=== PATIENT | male | born 1945 | race Caucasian/White ===

== ENCOUNTER 2019-10-05 14:22 | Outpatient (CLI) | payer OTHER, SELFPAY ==
[2019-10-10 21:36] LABS: PSA, Free 0.04 ng/mL; PSA, Total 0.1 ng/mL (<=4.0)
== END 2019-10-05 14:23 | disposition home or self-care (01) ==
LOC: ANHLAB 14:24
PROVIDERS: PCP Internal Medicine; Visit Provider Radiology Radiation Oncology
DX: C61 Malignant neoplasm of prostate (principal)
CPT/HCPCS: 36415; 84153; 84154

== ENCOUNTER 2020-10-05 14:31 | Inpatient (IN) | payer OTHER, SELFPAY ==
[2020-10-05] VITALS (9 sets, daily range): BP systolic 137–154; BP diastolic 57–78; PULSE 63–74; RESP 14–22; TEMP 36.6–36.7; O2SAT 95–99; BMI 26.4
--- NOTE | ~2020-10-05 | XR_ITS ---
EXAMINATION: XR chest 1V portable INDICATION: Chest pain TECHNIQUE: Portable AP chest at 1555 hours COMPARISON: 04/09/2016 FINDINGS: There is ill-defined opacity in the left midlung zone. There is a questionable fracture of the left sixth rib. No pleural effusion or pneumothorax is identified. The cardiomediastinal silhouet te is normal. IMPRESSION: 1. Ill-defined opacity of the left midlung zone which could be infectious/inflammatory or possibly co ntusion. 2. Likely left sixth rib fracture. Reviewed, dictated and finalized at location A. IMPRESSION: 1. Ill-defined opacity of the left midlung zone which could be infectious/infla mmatory or possibly contusion. 2. Likely left sixth rib fracture.
--- NOTE | ~2020-10-05 | XR_ITS ---
EXAMINATION: XR femur LT min 2V INDICATION: Left hip pain, initial encounter TECHNIQUE: Two views of the left femur are obtained on four radiographs. COMPARISON: None available FINDINGS: There is an acute, traumatic, closed, oblique fracture in the proximal femoral shaft. There is varus angulation at the fracture site. The distal fracture fragment is dorsally displaced approxi mately 2.5 cm. Alignment at the hip and knee is normal. There is mild hip osteoarthritis. There are c hanges of total knee arthroplasty. Calcified atherosclerosis is noted. IMPRESSION: 1. Acute displaced fracture of the proximal femoral shaft. Reviewed, dictated and finalized at location A.
--- NOTE | ~2020-10-05 | XR_ITS ---
EXAMINATION: XR surgery orthopedic DATE: 10/06/2020 11:27 INDICATION: Left hip intertrochanteric nailing TECHNIQUE: Fluoroscopic spot images of the left hip and femur were obtained during procedure performed by Dr. Peter stein. Radiologist was not present for the imaging or procedure. The amount of fluoroscopy time used during this procedure was 4.1 minutes. COMPARISON: 10/05/2020 FINDINGS: Interval open reduction and internal fixation of the previously noted subtrochanteric fracture of the proximal left femur with an antegrade intramedullary christy, interlocking distal and femoral neck screw s and subtrochanteric cerclage wire. Alignment appears near-anatomic. No other fractures identified. Mild to moderate left hip osteoarthritis with axial predominant nonuniform joint space narrowing and small marginal osteophytes about the rim of the acetabulum. Expected small amount of soft tissue gas the operative bed. IMPRESSION: 1. Near-anatomic alignment post open reduction internal fixation of a subtrochanteric fracture of the proximal left femoral diaphysis. Reviewed, dictated and finalized at location A. IMPRESSION: 1. Near-anatomic alignment post open reduction internal fixation of a subtrocha nteric fracture of the proximal left femoral diaphysis.
--- NOTE | ~2020-10-05 | XR_ITS ---
EXAMINATION: XR hip LT 2V w AP pelvis INDICATION: Left hip pain, initial encounter TECHNIQUE: AP view of the pelvis and two views of the left hip are obtained. COMPARISON: None available FINDINGS: There is an acute, traumatic, closed, oblique fracture in the proximal femoral shaft. There is varus angulation at the fracture site. The distal fracture fragment is dorsally displaced approxi mately 2.5 cm. Alignment at the hip is normal. There is mild hip osteoarthritis. There is severe lumb ar spondylosis. Calcified atherosclerosis is noted. IMPRESSION: 1. Acute fracture of the proximal left femoral shaft. Reviewed, dictated and finalized at location A.
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
--- NOTE | 2020-10-05 15:44 | ECG_ITS ---
Measurements Intervals [place] Rate: 67 P: 55 UT: 147 QRS: -10 QRSD: 97 T: 13 QT: 410 QTc: 435 Interpretive Statements SINUS RHYTHM BASELINE ARTIFACT- I, II, III, AVR, AVF, V1-V6 NORMAL ECG Electronically Signed On 10-05-2020 20:56:06 CDT by Kristopher King D.O.
[2020-10-05] MEDS: SODIUM CHLORIDE 0.9% IV 1,000 ML 100 ML IV CONT (16:09)
[2020-10-05 16:15] LABS: Basophils Percent Auto 0.2 % (0.2-1.2); Eosinophils Absolute Auto 0.1 K/mm3 (0-0.3); Eosinophils Percent Auto 1.7 % (0-4.4); Hematocrit 41.4 % (42.0-52.0); Hemoglobin 13.7 g/dL (14.0-18.0); Immature Granulocyte Absolute 0.04 K/mm3 (0.00-0.031); Immature Granulocyte Percent A 0.5 % (0-0.5); Lymphocytes Absolute Auto 0.83 K/mm3 (0.9-3.2); Lymphocytes Percent Auto 10.3 % (18.3-44.2); Mean Corpuscular HGB Conc 33.1 g/dl (32-36); Mean Corpuscular Hemoglobin 31.1 pg (26-34); Mean Corpuscular Volume 94.1 fl (80-100); Mean Platelet Volume 9.3 fl (7.4-10.4); Monocytes Absolute Auto 0.4 K/mm3 (0.1-0.6); Monocytes Percent Auto 5.2 % (2.6-8.5); Neutrophils Absolute Auto 6.6 K/mm3 (1.3-6.7); Neutrophils Percent Auto 82.1 % (45.5-73.1); Platelet Count Result 150 k/mm3 (150-375)
[2020-10-05 16:24] LABS: Anion Gap 7 mmol/L (8-16); Blood Urea Nitrogen 20 mg/dL (9-20); Calcium 9.2 mg/dL (8.4-10.2); Carbon Dioxide 26 mmol/L (22-30); Chloride 107 mmol/L (98-107); Estimated CRCL calculation 61 ml/min; Estimated Glomerular Filt Rate > 60; Glucose 153 mg/dL (75-110); Potassium 4.1 mmol/L (3.4-5.0); Sodium 140 mmol/L (137-145)
[2020-10-05 16:26] LABS: INR 0.9
[2020-10-05 16:27] LABS: Partial Thromboplastin Time 24.8 SECONDS (22.3-36.8)
[2020-10-05] MEDS: MORPHINE SULFATE (*CRX) 4 MG/ML INJ IV PUSH (16:50)
--- NOTE | 2020-10-05 18:26 | ADMGEN ---
This patient, Roney Mason, was admitted to Medical Room 254-01. Patient/family oriented to hospital policies and general routines including ID bracelet, bed and alarms, visiting hours, pain management, procedures, bathroom and other care routines, personal items, smoking policy, room service/diet, and visiting hours. Information on how to activate the Rapid Response Team has been discussed. Patient/Family are encouraged to report perceived risks to care and to ask questions if they do not understand what they are told or what they should do.
[2020-10-05 18:40] LABS: Glucose Point of Care 129 mg/dl (65-105)
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
[2020-10-05 20:38] LABS: Glucose Point of Care 192 mg/dl (65-105)
[2020-10-05] MEDS: HYDROcodone/acetaminophen (*CRX) 5-325 MG TABLET 1 TAB PO (20:38)
[2020-10-06] VITALS (15 sets, daily range): BP systolic 100–142; BP diastolic 41–66; PULSE 71–92; RESP 10–20; TEMP 36.1–37.6; O2SAT 93–100
[2020-10-06] MEDS: HYDROcodone/acetaminophen (*CRX) 5-325 MG TABLET 1 TAB PO ×2 (00:44→04:43)
[2020-10-06 05:17] LABS: Hematocrit 37.3 % (42.0-52.0); Hemoglobin 12.7 g/dL (14.0-18.0); Mean Corpuscular Hemoglobin 31.1 pg (26-34); Mean Corpuscular Volume 91.4 fl (80-100); Mean Platelet Volume 9.6 fl (7.4-10.4); Platelet Count Result 146 k/mm3 (150-375); Red Blood Count 4.08 M/mm3 (4.6-6.20); Red Cell Distribution Width 12.6 % (11.5-14.5); White Blood Count 6.3 K/mm3 (4.5-10.0)
[2020-10-06 06:20] LABS: Vitamin D 25 Hydroxy 27.6 ng/mL
[2020-10-06] MEDS: LACTATED RINGERS 1,000 ML 30 ML IV CONT ×2 (07:00→12:10)
--- NOTE | 2020-10-06 07:01 | PC.NURSE ---
Pt transfered to surgery at 0635 by Johanny, personal belongings including glasses, hearing aid, and wedding ring in room closet inside [employer] glasses case
--- NOTE | 2020-10-06 07:01 | WPDANESEPPF ---
Anes - Initial Pre Proc Eval Procedure: Operation Date: 10/06/20 07:30 Proposed Procedures p Left Intertrochanteric Nail - Tyson Fu MD Date/Time: 10/06/20 07:01 Surgeon: Anup Mgaana MD Pre Op Diagnosis: left proximal femur fracture Patient Data Age: 75 Gender: M Height: 1.75 m Weight: 81.1 kg Last Vital Signs Temp 36.6 C 10/05/20 19:57 Pulse 74 10/05/20 19:57 Resp 16 10/05/20 19:57 BP 139/57 L 10/05/20 19:57 Pulse Ox 98 10/05/20 19:57 Allergies Allergy/AdvReac Type Severity Reaction Status Date / Time Sulfa (Sulfonamide Allergy Unknown Rash Verified 10/05/20 18:28 Antibiotics) Penicillins AdvReac Unknown Swelling Verified 10/05/20 18:28 Home Medications Medication Instructions Recorded Confirmed Type losartan 50 mg tablet 50 mg PO DAILY #90 tablet 10/26/19 10/05/20 Rx dapagliflozin [Farxiga] 10 mg PO DAILY 10/05/20 10/05/20 History escitalopram oxalate 10 mg PO DAILY 10/05/20 10/05/20 History glimepiride 2 mg PO DAILY 10/05/20 10/05/20 History pravastatin 40 mg PO DAILY 10/05/20 10/05/20 History sitagliptin-metformin [Janumet] 1 tablet PO DAILY 10/05/20 10/05/20 History Laboratory Tests 10/05/20 10/05/20 10/05/20 16:09 16:09 16:09 WBC 8.0 K/mm3 K/mm3 (4.5-10.0) RBC 4.40 M/mm3 L M/mm3 (4.6-6.20) Hgb 13.7 g/dL L g/dL (14.0-18.0) Hct 41.4 % L % (42.0-52.0) MCV 94.1 fl fl (80-100) MCH 31.1 pg pg (26-34) MCHC 33.1 g/dl g/dl (32-36) RDW 13.0 % % (11.5-14.5) Plt Count 150 k/mm3 k/mm3 (150-375) MPV 9.3 fl fl (7.4-10.4) Immature Gran % (Auto) 0.5 % % (0-0.5) Neut % (Auto) 82.1 % H % (45.5-73.1) Lymph % (Auto) 10.3 % L % (18.3-44.2) Russell % (Auto) 5.2 % % (2.6-8.5) Eos % (Auto) 1.7 % % (0-4.4) Baso % (Auto) 0.2 % % (0.2-1.2) Lymph # (Auto) 0.83 K/mm3 L K/mm3 (0.9-3.2) Russell # (Auto) 0.4 K/mm3 K/mm3 (0.1-0.6) Eos # (Auto) 0.1 K/mm3 K/mm3 (0-0.3) Baso # (Auto) 0.0 K/mm3 K/mm3 (0.0-0.1) Abs Immat Gran (auto) 0.04 K/mm3 H K/mm3 (0.00-0.031) Absolute Neuts (auto) 6.6 K/mm3 K/mm3 (1.3-6.7) Absolute Nucleated RBC 0.0 K/mm3 K/mm3 (0.0-0.012) Nucleated RBC % 0.0 % % (0.0-0.2) PT 13.0 Seconds Seconds (11.1-14.7) INR 0.9 APTT 24.8 SECONDS SECONDS (22.3-36.8) Sodium 140 mmol/L mmol/L (137-145) Potassium 4.1 mmol/L mmol/L (3.4-5.0) Chloride 107 mmol/L mmol/L (98-107) Carbon Dioxide 26 mmol/L mmol/L (22-30) Anion Gap 7 mmol/L L mmol/L (8-16) BUN 20 mg/dL mg/dL (9-20) Creatinine 0.90 mg/dL mg/dL (0.7-1.3) Estim Creat Clear Calc 61 ml/min ml/min Estimated GFR > 60 (59 - ) Glucose 153 mg/dL H mg/dL (75-110) POC Capillary Glucose Calcium 9.2 mg/dL mg/dL (8.4-10.2) Free PSA % Free PSA Total PSA Vitamin D 25-Hydroxy Blood Type Antibody Screen 10/05/20 10/05/20 10/05/20 16:09 18:36 20:35 WBC RBC Hgb Hct MCV MCH MCHC RDW Plt Count MPV Immature Gran % (Auto) Neut % (Auto) Lymph % (Auto) Russell % (Auto) Eos % (Auto) Baso % (Auto) Lymph # (Auto) Russell # (Auto) Eos # (Auto) Baso # (Auto) Abs Immat Gran (auto) Absolute Neuts (auto) Absolute Nucleated RBC Nucleated RBC % PT INR APTT Sodium Potassium Chloride
[2020-10-06] MEDS: TRANEXAMIC ACID 1,000MG/ISO100 1,000 MG/100 ML BAG 200 MG IVPB (07:03)
[2020-10-06 07:22] LABS: Glucose Point of Care 241 mg/dl (65-105)
--- NOTE | 2020-10-06 07:28 | WPDHPUPDATE1 ---
History and Physical Update Update Date/Time: 10/06/20 07:28 History and Physical has been reviewed, including an updated exam of the patient. There are NO changes in the patient's condition. Risks, benefits, and alternatives have been discussed and questions answered. Patient agrees to proceed with procedure.
[2020-10-06] MEDS: INSULIN HUMAN REGULAR (*BKC) 100 UNITS/ML IV PUSH ×2 (07:30→12:25)
[2020-10-06] MEDS: AZTREONAM 2 GM in DEXTROSE 5% 100 ML 200 ML IVPB (08:00)
[2020-10-06] MEDS: VANCOMYCIN HCL 1,000 MG VIAL 1000 MG XX (08:56)
[2020-10-06] MEDS: CLINDAMYCIN 900 MG/D5W 50 ML 900 MG/50 ML PIGGYBACK 50 MG IVPB (11:36)
--- NOTE | 2020-10-06 12:00 | PM.PROC ---
Procedure Note - Detailed Date of procedure: 10/06/20 Pre-op diagnosis: left proximal femur fracture Left proximal shaft fracture long oblique with subtrochanteric extension Post-op diagnosis: same Procedure performed: Open reduction internal fixation left proximal shaft long oblique fracture with [employer] Gamma trochanteric nail device. Description of procedure: Patient was brought to the operating room and general anesthesia was administered. The had allergy to penicillin that was severe in the past. He received 2 g of a strand am weight based vancomycin and 1 g of tranexamic acid preoperatively. The thigh was shaved in carefully scrubbed with chlorhexidine cloth boot was applied on the foot with extra padding for longitudinal traction the right hip flexed and abducted out of the way a calf carefully padded. General anesthesia was was used so we could use muscle paralysis for relaxation. After applying traction to the leg fluoroscopy showed that the distal fragment was 100% posteriorly translated relative to the proximal fragment. The left thigh was prepped draped usual fashion. A 4 in longitudinal incision was made over the posterolateral femur at the level of the long oblique fracture. The fascia viki was incised longitudinally. We incised the vastus lateralis fascia about a cm from the posterior aspect of the muscle and elevated this off the lateral and anterior cortex of the distal fragment. The fracture was primarily in the sagittal plane exiting the lateral cortex distal to the greater trochanter with some comminution in that region and exiting the medial cortex about 5 in distal to the lesser trochanter. A Lopez retractor was placed anteriorly and we inspected the fracture looking for signs of tumor and I did not see any period the visible external surface of the bone and the endosteal surfaces of the bone appeared to be normal. There was no soft tissue in the canal. He does have a history of prostate cancer. Fracture hematoma was sent half. The femur was elevated pressure under the thigh and we passed the [place] cable Passer of appropriate sized over the front again the bone and penetrated this through the gluteus romi tendon insertion and with the Z retractor placed posterior laterally we exposed the tip of the cable Passer and fed the cable into this bring it out the front. We then applied the crimp and the tensioner and manipulated the femur. Little bit of external rotation was needed on the leg and anterior translation of the distal shaft was crucial. Gradually we improved the alignment to near anatomic and at this point we took the over distraction off and the fracture settled into what appeared to be perfect anatomic reduction. We left the [place] tensioner on the bone at 75 lb. We then made a 2 in incision proximal to greater trochanter guide pin drilled into the proper position of the greater trochanter and down the canal. The canal was reamed to 13 mm which just started to get chatter. The intertrochanteric region of the femur was reamed to the 16 mm Reamer. We asked for the 11 mm by 360 mm nail but unfortunately that this stage we learned that we only had 9 mm nails in the hospital which I did not think it was appropriate for a gentleman the size. We had a few [employer] gamma nails but none that would be appropriate in length for this gentleman. Also we did not have the appropriate length hip screws to go with it. We called the [employer] rep when and they advised us that they could be here with the implants in 30 minutes and a brown to the hospital while we made ready for the implant arrival when they arrived we inserted the 360 mm gamma nail for the left femur 36 cm in length which was the appropriate length. We inserted a guide pin up into the femur. Because of his particular anteversion and anatomy a guide pin was a little bit posterior in the femoral head but acceptable for a non intertrochanteric hip fracture and we reamed this and pl
[2020-10-06 12:41] LABS: Glucose Point of Care 266 mg/dl (65-105)
--- NOTE | 2020-10-06 12:43 | SUR.PHASEI ---
[id number] sbar faxed floor notified
[2020-10-06] MEDS: AZTREONAM 1 GM in DEXTROSE 5% IN WATER 50 ML 100 ML IVPB ×2 (13:43→21:48)
[2020-10-06] MEDS: PRAVASTATIN SODIUM 20 MG TABLET 40 MG PO (13:44)
[2020-10-06] MEDS: ESCITALOPRAM OXALATE 10 MG TABLET PO (13:44)
[2020-10-06] MEDS: ACETAMINOPHEN 500 MG TABLET 1000 MG PO ×2 (13:44→17:59)
[2020-10-06] MEDS: oxyCODONE HCL (*CRX) 5 MG TAB IR PO ×3 (13:44→21:48)
[2020-10-06] MEDS: LOSARTAN POTASSIUM 50 MG TABLET PO (13:44)
--- NOTE | 2020-10-06 14:00 | PC.NURSE ---
Patient returned from Surgery. Report received from AYLIN Winston.
[2020-10-06] MEDS: ONDANSETRON INJ 4 MG/2 ML VIAL IV PUSH (14:32)
[2020-10-06] MEDS: KCL 20 MEQ/D5/0.45% SOD CHL 1,000 ML 80 ML IV CONT (14:33)
--- NOTE | 2020-10-06 14:38 | PM.IMPN ---
Progress Note: A&P Assessment and Plan (1) Closed fracture of proximal end of femur: Code(s): S72.009A - Fracture of unspecified part of neck of unspecified femur, initial encounter for closed fracture Status: Acute Assessment and Plan: Status post left femur repair Care per ortho infection control: Aztreonam 1gm q8hr, vancomycin 1000 q12hr, Doxycycline 100mg PO Q12hr Pain control:Tylenol 1000mg PO Q6hr, oxycodone 5mg PO Q4hr, Morphine 2mg IV Q3/4hr PRN, Roxicodone 5mg Q4hr PRN Nausea:Zofran 4mg Q4hr Bowel regimen: MOM, Mylanta, Senokot SUPPORTIVE CARE PAIN MANAGEMENT ORTHO CONSULTED PT/OT VTE Apixaban 2.5 PO Q12hr (2) Type 2 diabetes mellitus without complication, with no history of insulin use: Code(s): E11.9 - Type 2 diabetes mellitus without complications Status: Acute Assessment and Plan: ACCU-CHEKS AC AND HS Continue home farxiga 10 mg PO Daily, Glimepiride 2mg PO daily, and Janumet 1 tab Daily Adjust mediations as needed (3) Essential (primary) hypertension: Code(s): I10 - Essential (primary) hypertension Status: Acute Assessment and Plan: 134/56 currently Trend blood pressure Continue home losartan 50 mg p.o. daily Adjust medications as needed (4) Status post total right knee replacement: Code(s): Z96.651 - Presence of right artificial knee joint Status: Acute Assessment and Plan: STABLE (5) Anxiety and depression: Code(s): F41.9 - Anxiety disorder, unspecified; F32.9 - Major depressive disorder, single episode, unspecified Status: Acute Assessment and Plan: Continue home Lexapro 10 mg p.o. daily Subjective Date/time seen: 10/06/20 14:38 Patient is a 75-year-old male who has a past medical history of anxiety and depression hypertension type 2 diabetes who came to the ED last night after being drug by his lawnmower. Patient's foot got stuck and twisted and he has suffered a proximal shaft displacement fracture of the left femur. This morning patient had the fracture fix this morning by Dr. Fu. Upon examination of the patient, patient was sitting in the chair stating that he was tired and just want to take a nap. He stated they got him in the chair right after arriving to the room. Patient does not have any complaints of pain at this time he did say that he was slight bit nauseated and lightheaded. Patient denies chest pain shortness of breath, vomiting, weakness, fatigue, chills, sweats, headache, fatigue, and syncope. Review of Systems Review of Systems: All systems reviewed & are unremarkable except as noted in HPI and below Exam Const: General: cooperative, healthy appearing, comfortable, no acute distress, well developed, alert, awake, Physically active, lethargic and tired appearing; No in distress or anxious Nutritional Appearance: average body habitus and well nourished Orientation/consciousness: patient oriented x3 Limitations: physical limitations (From hip fracture repair) HENMT: Head: normal to inspection, No palpable skull fracture present, normocephalic and atraumatic Ears: hearing grossly normal bilaterally and external ears normal General nose exam: Normal external nose present, Normal nares present, Normal nasal mucous membranes and turbinates present, Normal septum present and No nasal discharge present Face and sinus: normal facial exam, sinuses nontender and face symmetric Mouth: Yes Normal oral and palatal mucosa present, Yes lip normal, Yes tongue normal and Yes Normal salivary glands and ducts present Teeth and gingiva: dentition normal and gingiva normal Throat: posterior oropharynx normal Eyes: General: appearance normal, both eyes and all related structures Periorbital: periorbital findings normal Eyelids: eyelids normal Conjunctivae: conjunctivae normal Pupils: Equal, round and reactive pupils present EOM: EOMs intac
[2020-10-06] MEDS: SENNA/DOCUSATE SODIUM TABLET 2 TAB PO (16:14)
[2020-10-06 17:41] LABS: Glucose Point of Care 286 mg/dl (65-105)
[2020-10-06] MEDS: INSULIN ASPART (*BKC) 100 UNITS/ML SUB-Q (17:57)
--- NOTE | 2020-10-06 18:11 | PHAR ---
PT'S HOME MED JARDIANCE 25 MG TAB VERIFIED BY PHARMACY
[2020-10-06] MEDS: FAMOTIDINE 20 MG TABLET PO (20:28)
[2020-10-06 21:11] LABS: Glucose Point of Care 268 mg/dl (65-105)
[2020-10-07] VITALS: BP 114/42; PULSE 70; RESP 14; TEMP 36.4; O2SAT 96
[2020-10-07] MEDS: oxyCODONE HCL (*CRX) 5 MG TAB IR PO ×3 (01:20→20:28)
[2020-10-07] MEDS: ACETAMINOPHEN 500 MG TABLET 1000 MG PO ×5 (01:20→23:26)
[2020-10-07 04:00] VITALS: BP 102/39; PULSE 75; RESP 12; TEMP 36.4; O2SAT 94
[2020-10-07] MEDS: KCL 20 MEQ/D5/0.45% SOD CHL 1,000 ML 80 ML IV CONT ×2 (04:00→15:36)
[2020-10-07 05:17] LABS: Basophils Percent Auto 0.2 % (0.2-1.2); Eosinophils Percent Auto 0.5 % (0-4.4); Hematocrit 27.5 % (42.0-52.0); Immature Granulocyte Absolute 0.01 K/mm3 (0.00-0.031); Immature Granulocyte Percent A 0.2 % (0-0.5); Lymphocytes Percent Auto 15.4 % (18.3-44.2); Mean Corpuscular HGB Conc 32.7 g/dl (32-36); Mean Corpuscular Hemoglobin 31.3 pg (26-34); Mean Corpuscular Volume 95.5 fl (80-100); Mean Platelet Volume 9.7 fl (7.4-10.4); Monocytes Absolute Auto 0.5 K/mm3 (0.1-0.6); Monocytes Percent Auto 7.8 % (2.6-8.5); Neutrophils Absolute Auto 4.5 K/mm3 (1.3-6.7); Neutrophils Percent Auto 75.9 % (45.5-73.1); Platelet Count Result 117 k/mm3 (150-375); Red Blood Count 2.88 M/mm3 (4.6-6.20); Red Cell Distribution Width 12.9 % (11.5-14.5); White Blood Count 5.9 K/mm3 (4.5-10.0)
[2020-10-07 05:24] LABS: Anion Gap 4 mmol/L (8-16); Blood Urea Nitrogen 17 mg/dL (9-20); Calcium 7.7 mg/dL (8.4-10.2); Carbon Dioxide 27 mmol/L (22-30); Chloride 105 mmol/L (98-107); Estimated CRCL calculation 56 ml/min; Estimated Glomerular Filt Rate > 60; Glucose 159 mg/dL (75-110); Potassium 4.3 mmol/L (3.4-5.0); Sodium 136 mmol/L (137-145)
[2020-10-07] MEDS: AZTREONAM 1 GM in DEXTROSE 5% IN WATER 50 ML 100 ML IVPB (05:39)
--- NOTE | 2020-10-07 06:34 | PM.PNORT ---
Progress Note: A&P Additional Plan Patient is postop day 1 following intramedullary christy fixation of subtroch proximal shaft left femur fracture. He has no pain centrally. He has intact sensation motor function left leg. He denies any numbness around the scrotum. He has been up to the chair but does feel little bit lightheaded. His blood pressure was a little bit low this morning and I will ask the hospitalist if it is acceptable to hold his losartan or advisable. His hemoglobin this morning is only 9.0 which is not critically low but does represent a acute blood loss anemia that might explain his lightheadedness feeling being up. We will see how he does today. The fact that he was basically at bed rest for 24 hours can contribute to the lightheadedness feeling. I will reduce his schedule Oxy code own to 2.5 mg q.4 hours. He still has the as needed available. Will institute ergo calciferol 27086 units weekly for 6 weeks because have his low vitamin D level. His PSA tests are still pending. Will order a CBC in the morning. Subjective Subjective Date/Time Seen: 10/07/20 06:34 Objective Data Vital Signs Vital Signs: Vital Signs - 24 hr 10/06/20 07:10 10/06/20 08:48 10/06/20 12:00 Temperature 37.6 C 36.3 C L Pulse Rate 73 77 Respiratory Rate 16 12 Blood Pressure 142/64 H 130/58 L Pulse Oximetry 95 95 100 10/06/20 12:15 10/06/20 12:30 10/06/20 12:45 Temperature Pulse Rate 73 74 71 Respiratory Rate 15 10 L 12 Blood Pressure 131/66 118/59 L 127/60 Pulse Oximetry 97 100 97 10/06/20 13:00 10/06/20 13:25 10/06/20 13:40 Temperature 36.1 C L 36.1 C L Pulse Rate 73 75 77 Respiratory Rate 12 18 18 Blood Pressure 134/56 L 128/53 L 126/53 L Pulse Oximetry 96 98 93 10/06/20 14:10 10/06/20 14:15 10/06/20 15:10 Temperature 36.4 C 36.4 C L Pulse Rate 79 80 Respiratory Rate 20 20 Blood Pressure 101/48 L 100/50 L 118/41 L Pulse Oximetry 97 98 10/06/20 18:00 10/06/20 19:47 10/06/20 20:34 Temperature 36.6 C 36.6 C Pulse Rate 92 92 83 Respiratory Rate 18 18 12 Blood Pressure 111/52 L 118/44 L Pulse Oximetry 97 97 94 10/07/20 00:00 10/07/20 04:00 Temperature 36.4 C 36.4 C Pulse Rate 70 75 Respiratory Rate 14 12 Blood Pressure 114/42 L 102/39 L Pulse Oximetry 96 94 Intake/Output Intake/Output: Intake & Output 10/04/20 10/05/20 10/06/20 10/07/20 23:59 23:59 23:59 23:59 Intake Total 1000 1989 1500 Output Total 600 1850 1800 Balance 400 140 -300 Meds/Results Medications: Active Medications Generic Name Dose Route Start Last Admin Trade Name Freq PRN Reason Stop Dose Admin Acetaminophen 1,000 mg 10/06/20 13:13 10/07/20 05:39 Acetaminophen 500 Mg Tablet PO 1,000 mg Q6HR DERRICK Administration Al Hydrox/Mg Hydrox/Simethicone 30 ml 10/06/20 13:13 Mag Hydrox/Al Hydrox/Simeth 30 Ml Udc PO Q6H PRN Indigestion Apixaban 2.5 mg 10/07/20 09:00 Apixaban 2.5 Mg Tablet PO 11/18/20 09:01 Q12HR DERRICK Dextrose 12.5 gm 10/06/20 17:33 Dextrose 50% 25 Gm/50 Ml Syringe IV PUSH PRN PRN Hypoglycemia Protocol Doxycycline Hyclate 100 mg 10/07/20 09:00 Doxycycline Hyclate 100 Mg Tablet PO Q12HR DERRICK Escitalopram Oxalate 10 mg 10/06/20 09:00 10/06/20 13:44 Escitalopram Oxalate 10 Mg Tablet PO 10 mg DAILY DERRICK Administration Famotidine 20 mg 10/06/20 21:00 10/06/20 20:28 Famotidine 20 Mg Tablet PO 20 mg Q12HR DERRICK Administration Glimepiride 2 mg 10/07/20 08:00 Glimepiride 2 Mg Tablet PO DAILY@0800 DERRICK Glucagon 1 mg 10/06/20 17:33 Glucagon For Inj 1 Mg Vial IM PRN PRN Hypoglycemia Protocol Glucose 15 gm 10/06/20 17:33 Glucose Oral Gel 15 Gm Of Glucse In 37.5 Gm Tube PO PRN PRN Hypoglycemia Protocol Hydroxyzine Pamoate 50 mg 10/06/20 13:13 Hydroxyzine Pamoate 25 Mg Capsule PO Q4H PRN Itching Aztreonam 1 gm/ Dextrose 50 mls @ 100 mls/hr 05
[2020-10-07 07:58] LABS: Glucose Point of Care 227 mg/dl (65-105)
[2020-10-07] MEDS: INSULIN ASPART (*BKC) 100 UNITS/ML SUB-Q (08:47)
[2020-10-07] MEDS: GLIMEPIRIDE 2 MG TABLET PO (08:48)
[2020-10-07] MEDS: DOXYCYCLINE HYCLATE 100 MG TABLET PO ×2 (08:49→22:03)
[2020-10-07] MEDS: metFORMIN HCL 500 MG TABLET 1000 MG PO (08:49)
[2020-10-07] MEDS: APIXABAN 2.5 MG TABLET PO ×2 (08:49→20:28)
[2020-10-07] MEDS: SENNA/DOCUSATE SODIUM TABLET 2 TAB PO ×2 (08:49→17:38)
[2020-10-07] MEDS: FAMOTIDINE 20 MG TABLET PO ×2 (08:50→20:28)
[2020-10-07] MEDS: ESCITALOPRAM OXALATE 10 MG TABLET PO (08:50)
[2020-10-07] MEDS: ERGOCALCIFEROL 50,000 UNIT CAPSULE 50000 UNITS PO (08:50)
[2020-10-07] MEDS: PRAVASTATIN SODIUM 20 MG TABLET 40 MG PO (08:51)
[2020-10-07] MEDS: TOLNAFTATE 1% POWDER 45 GM BTL 1 APPLIC TOPICAL (08:51)
[2020-10-07] MEDS: LOSARTAN POTASSIUM 50 MG TABLET PO (08:51)
[2020-10-07] MEDS: polyethylene glycoL 3350 17 GM POWD.PACK PO (08:51)
[2020-10-07 10:00] VITALS: BP 103/50; PULSE 85; RESP 16; TEMP 36.7; O2SAT 92
--- NOTE | 2020-10-07 11:01 | PM.IMPN ---
Progress Note: A&P Assessment and Plan (1) Closed fracture of proximal end of femur: Code(s): S72.009A - Fracture of unspecified part of neck of unspecified femur, initial encounter for closed fracture Status: Acute Assessment and Plan: Status post left femur repair Care per ortho infection control: Aztreonam 1gm q8hr, vancomycin 1000 q12hr, Doxycycline 100mg PO Q12hr Pain control:Tylenol 1000mg PO Q6hr, oxycodone 2.5mg PO Q4hr, Morphine 2mg IV Q3/4hr PRN, Roxicodone 5mg Q4hr PRN Nausea:Zofran 4mg Q4hr Bowel regimen: MOM, Mylanta, Senokot SUPPORTIVE CARE PAIN MANAGEMENT ORTHO CONSULTED PT/OT-up to chair with meals VTE Apixaban 2.5 PO Q12hr (2) Acute blood loss anemia: Code(s): D62 - Acute posthemorrhagic anemia Status: Acute Assessment and Plan: Hemoglobin is 9 today Probably related to the surgery Will start some iron 324mg PO daily Trend H/H Labs in the AM (3) Type 2 diabetes mellitus without complication, with no history of insulin use: Code(s): E11.9 - Type 2 diabetes mellitus without complications Status: Acute Assessment and Plan: Glucose is running more elevated at 227 per POC ACCU-CHEKS AC AND HS Continue home Sitagiptin 50mg PO, Glimepiride 2mg PO daily, Sliding scale trend glucose Labs in the AM Adjust mediations as needed (4) Essential (primary) hypertension: Code(s): I10 - Essential (primary) hypertension Status: Acute Assessment and Plan: 103/50 currently Trend blood pressure Continue home losartan 50 mg p.o. daily Might hold if needed Adjust medications as needed (5) Status post total right knee replacement: Code(s): Z96.651 - Presence of right artificial knee joint Status: Acute Assessment and Plan: STABLE (6) Anxiety and depression: Code(s): F41.9 - Anxiety disorder, unspecified; F32.9 - Major depressive disorder, single episode, unspecified Status: Acute Assessment and Plan: Continue home Lexapro 10 mg p.o. daily Time Spent With Patient Time with patient: Greater than 35 minutes Subjective Date/time seen: 10/07/20 11:01 Patient is a 75-year-old male who has a past medical history of anxiety and depression hypertension type 2 diabetes who came to the ED on 10/05/2020 after being drug by his lawnmower. Patient's foot got stuck and twisted and he has suffered a proximal shaft displacement fracture of the left femur. Patient had femur repair done yesterday 10/06/[address] Schumacher. Patient was lying in bed when I saw him this morning he said that his pain was under control and he did have any pain. Patient stated that he still a little bit lightheaded and dizzy at times which he stated was from fast movements. Patient denies chest pain, shortness of breath, vomiting, nausea, weakness, fatigue, chills, sweats, headache, numbness and tingling, falls, syncope, or abnormal urination. Patient stated that Dr. Schumacher did state that he was going to cut his pain medicine back. Patient has also experienced a lower than normal blood pressure current blood pressure is 103/50. However this patient did show a drop in hemoglobin to 9 this morning on labs. Review of Systems Review of Systems: All systems reviewed & are unremarkable except as noted in HPI and below Exam Const: General: cooperative, healthy appearing, comfortable, no acute distress, well developed, alert, awake, Physically active, lethargic and tired appearing; No in distress or anxious Nutritional Appearance: average body habitus and well nourished Orientation/consciousness: patient oriented x3 and lethargic Limitations: physical limitations (From hip fracture repair) HENMT: Head: normal to inspection, No palpable skull fracture present, normocephalic and atraumatic Ears: hearing grossly normal bilaterally and external ears normal General
--- NOTE | 2020-10-07 11:01 | P.PNIM_ITS ---
Progress Note: A&P Assessment and Plan (1) Closed fracture of proximal end of femur: Code(s): S72.009A - Fracture of unspecified part of neck of unspecified femur, initial encounter for closed fracture Status: Acute Assessment and Plan: * Status post left femur repair * Care per ortho * infection control: Aztreonam 1gm q8hr, vancomycin 1000 q12hr, Doxycycline 100mg PO Q12hr * Pain control:Tylenol 1000mg PO Q6hr, oxycodone 2.5mg PO Q4hr, Morphine 2mg IV Q3/4hr PRN, Roxicodone 5mg Q4hr PRN * Nausea:Zofran 4mg Q4hr * Bowel regimen: MOM, Mylanta, Senokot * SUPPORTIVE CARE * PAIN MANAGEMENT * ORTHO CONSULTED * PT/OT-up to chair with meals * VTE Apixaban 2.5 PO Q12hr (2) Acute blood loss anemia: Code(s): D62 - Acute posthemorrhagic anemia Status: Acute Assessment and Plan: * Hemoglobin is 9 today * Probably related to the surgery * Will start some iron 324mg PO daily * Trend H/H * Labs in the AM (3) Type 2 diabetes mellitus without complication, with no history of insulin use: Code(s): E11.9 - Type 2 diabetes mellitus without complications Status: Acute Assessment and Plan: * Glucose is running more elevated at 227 per POC * ACCU-CHEKS AC AND HS * Continue home Sitagiptin 50mg PO, Glimepiride 2mg PO daily, * Sliding scale * trend glucose * Labs in the AM * Adjust mediations as needed (4) Essential (primary) hypertension: Code(s): I10 - Essential (primary) hypertension Status: Acute Assessment and Plan: * 103/50 currently * Trend blood pressure * Continue home losartan 50 mg p.o. daily * Might hold if needed * Adjust medications as needed (5) Status post total right knee replacement: Code(s): Z96.651 - Presence of right artificial knee joint Status: Acute Assessment and Plan: * STABLE (6) Anxiety and depression: Code(s): F41.9 - Anxiety disorder, unspecified; F32.9 - Major depressive disorder, single episode, unspecified Status: Acute Assessment and Plan: * Continue home Lexapro 10 mg p.o. daily Time Spent With Patient Time with patient: Greater than 35 minutes Subjective Date/time seen: 10/07/20 11:01 Patient is a 75-year-old male who has a past medical history of anxiety and depression hypertension type 2 diabetes who came to the ED on 10/05/2020 after being drug by his lawnmower. Patient's foot got stuck and twisted and he has suffered a proximal shaft displacement fracture of the left femur. Patient had femur repair done yesterday 10/06/[address] Schumacher. Patient was lying in bed when I saw him this morning he said that his pain was under control and he did have any pain. Patient stated that he still a little bit lightheaded and dizzy at times which he stated was from fast movements. Patient denies chest pain, shortness of breath, vomiting, nausea, weakness, fatigue, chills, sweats, headache, numbness and tingling, falls, syncope, or abnormal urination. Patient stated that Dr. Schumacher did state that he was going to cut his pain medicine back. Patient has also experienced a lower than normal blood pressure current blood pressure is 103/50. However this patient did show a drop in hemoglobin to 9 this morning on labs. Review of Systems Review of Systems: All systems reviewed & are unremarkable except as noted in HPI and below Exam
[2020-10-07] MEDS: oxyCODONE HCL (*CRX) 2.5 MG TAB IR PO ×4 (11:05→22:03)
[2020-10-07 12:32] LABS: Glucose Point of Care 142 mg/dl (65-105)
--- NOTE | 2020-10-07 13:55 | WPDANESPN ---
Anes - Prog Note Post-Op Date/Time: 10/07/20 13:55 Cardiovascular status: normal Respiratory status: normal Airway patency: baseline Mental status: baseline Post-Op hydration status: normal Vital Signs: Last Vital Signs Temp 36.7 C 10/07/20 10:00 Pulse 85 10/07/20 10:00 Resp 16 10/07/20 10:00 BP 103/50 L 10/07/20 10:00 Pulse Ox 92 10/07/20 10:00 Pain Score (VAS): 3 I/O: Intake & Output 10/06/20 10/07/20 10/07/20 23:59 07:59 15:59 Intake Total 840 1550 240 Output Total 500 1800 Balance 340 -250 240 Laboratory Tests 10/07/20 04:50 10/07/20 04:50 10/06/20 10/06/20 10/07/20 17:24 20:29 04:50 WBC 5.9 RBC 2.88 L Hgb 9.0 L D Hct 27.5 L MCV 95.5 MCH 31.3 MCHC 32.7 RDW 12.9 Plt Count 117 L MPV 9.7 Immature Gran % (Auto) 0.2 Neut % (Auto) 75.9 H Lymph % (Auto) 15.[address] [place] % (Auto) 7.8 Eos % (Auto) 0.5 Baso % (Auto) 0.2 Lymph # (Auto) 0.90 [place] # (Auto) 0.5 Eos # (Auto) 0.0 Baso # (Auto) 0.0 Abs Immat Gran (auto) 0.01 Absolute Neuts (auto) 4.5 Absolute Nucleated RBC 0.0 Nucleated RBC % 0.0 Sodium Potassium Chloride Carbon Dioxide Anion Gap BUN Creatinine Estim Creat Clear Calc Estimated GFR Glucose POC Capillary Glucose 286 H 268 H Calcium 10/07/20 10/07/20 10/07/20 04:50 07:53 12:29 WBC RBC Hgb Hct MCV MCH MCHC RDW Plt Count MPV Immature Gran % (Auto) Neut % (Auto) Lymph % (Auto) [place] % (Auto) Eos % (Auto) Baso % (Auto) Lymph # (Auto) [place] # (Auto) Eos # (Auto) Baso # (Auto) Abs Immat Gran (auto) Absolute Neuts (auto) Absolute Nucleated RBC Nucleated RBC % Sodium 136 L Potassium 4.3 Chloride 105 Carbon Dioxide 27 Anion Gap 4 L BUN 17 Creatinine 1.00 Estim Creat Clear Calc 56 Estimated GFR > 60 Glucose 159 H POC Capillary Glucose 227 H 142 H Calcium 7.7 L Post-procedural complaints: none Patient Feedback: Patient satisfied with anesthetic care.
[2020-10-07 14:00] VITALS: BP 133/54; PULSE 70; RESP 16; TEMP 37.2; O2SAT 94
[2020-10-07 17:20] LABS: Glucose Point of Care 158 mg/dl (65-105)
[2020-10-07 18:33] VITALS: BP 104/51; PULSE 62; RESP 20; TEMP 36.3; O2SAT 94
[2020-10-07 20:00] VITALS: BP 120/48; PULSE 82; RESP 12; TEMP 37; O2SAT 92
[2020-10-07 22:42] LABS: Glucose Point of Care 189 mg/dl (65-105)
[2020-10-08] MEDS: oxyCODONE HCL (*CRX) 2.5 MG TAB IR PO ×3 (02:10→10:17)
[2020-10-08] MEDS: KCL 20 MEQ/D5/0.45% SOD CHL 1,000 ML 80 ML IV CONT (04:12)
[2020-10-08 05:00] VITALS: BP 170/52; PULSE 71; RESP 12; TEMP 36.3; O2SAT 97
[2020-10-08 05:32] LABS: Hematocrit 25.8 % (42.0-52.0); Hemoglobin 8.5 g/dL (14.0-18.0); Mean Corpuscular HGB Conc 32.9 g/dl (32-36); Mean Corpuscular Hemoglobin 31.5 pg (26-34); Mean Corpuscular Volume 95.6 fl (80-100); Mean Platelet Volume 9.6 fl (7.4-10.4); Platelet Count Result 107 k/mm3 (150-375); Red Cell Distribution Width 13.2 % (11.5-14.5); White Blood Count 4.8 K/mm3 (4.5-10.0)
[2020-10-08 05:46] LABS: Anion Gap 2 mmol/L (8-16); Blood Urea Nitrogen 13 mg/dL (9-20); Calcium 7.8 mg/dL (8.4-10.2); Carbon Dioxide 29 mmol/L (22-30); Chloride 107 mmol/L (98-107); Estimated CRCL calculation 61 ml/min; Estimated Glomerular Filt Rate > 60; Glucose 141 mg/dL (75-110); Potassium 4.1 mmol/L (3.4-5.0); Sodium 138 mmol/L (137-145)
[2020-10-08] MEDS: ACETAMINOPHEN 500 MG TABLET 1000 MG PO ×2 (06:17→11:56)
--- NOTE | 2020-10-08 06:50 | PM.PNORT ---
Progress Note: A&P Additional Plan Patient is now postoperative day 2 after open reduction proximal oblique subtrochanteric proximal shaft left femur fracture and trochanteric nail fixation. He did find that he needed an extra pain pill above the 2.5 mg oxycodone yesterday and with the 5 mg his pain is well controlled we will plan on setting a Hohmann that. He would like to go home today feels ready. He climbed 1 step yesterday in therapy which is what he will need to do to get into his house. His is there to help him. He did not feel lightheaded yesterday. We kept his IV fluids going and his urine output has been significant. His urine is clear and pale today. His hemoglobin is 8.5 which should be stable at this point. His platelets are little bit low at 107,000 hundred seven thousand and I think this is due to consumption and associated blood loss. His thigh shows mild swelling only the wounds were dry. He has intact neurologic function left leg. He has no complaints. I discussed precautions with him and it is important that he keep the leg elevated when he is not up and about. We have him restricted to 25 lb touch weight-bearing on the left leg for the 1st month as the fracture is long oblique will therefore not have bony stability initially. For DVT prophylaxis we will continue with Eliquis for period of 5 weeks. I will order constipation prophylaxis. His most recent blood pressure was systolic 170 so he has no signs of hypovolemia and I see that his losartan was continued yesterday. I would like to see him back in the office in approximately 2 weeks. Subjective Subjective Date/Time Seen: 10/08/20 06:50 Objective Data Vital Signs Vital Signs: Vital Signs - 24 hr 10/07/20 10:00 10/07/20 14:00 10/07/20 18:33 Temperature 36.7 C 37.2 C 36.3 C L Pulse Rate 85 70 62 Respiratory Rate 16 16 20 Blood Pressure 103/50 L 133/54 L 104/51 L Pulse Oximetry 92 94 94 10/07/20 20:00 10/08/20 05:00 Temperature 37.0 C 36.3 C L Pulse Rate 82 71 Respiratory Rate 12 12 Blood Pressure 120/48 L 170/52 H Pulse Oximetry 92 97 Intake/Output Intake/Output: Intake & Output 05/23/21 10/06/20 10/07/20 10/08/20 23:59 23:59 23:59 23:59 Intake Total 1000 1989 2969 1500 Output Total 600 1850 3050 1950 Balance 400 140 -80 -450 Meds/Results Medications: Active Medications Generic Name Dose Route Start Last Admin Trade Name Freq PRN Reason Stop Dose Admin Acetaminophen 1,000 mg 10/06/20 13:13 10/08/20 06:17 Acetaminophen 500 Mg Tablet PO 1,000 mg Q6HR DERRICK Administration Al Hydrox/Mg Hydrox/Simethicone 30 ml 10/06/20 13:13 Mag Hydrox/Al Hydrox/Simeth 30 Ml Udc PO Q6H PRN Indigestion Apixaban 2.5 mg 10/07/20 09:00 10/07/20 20:28 Apixaban 2.5 Mg Tablet PO 11/18/20 09:01 2.5 mg Q12HR DERRICK Administration Dextrose 12.5 gm 10/06/20 17:33 Dextrose 50% 25 Gm/50 Ml Syringe IV PUSH PRN PRN Hypoglycemia Protocol Doxycycline Hyclate 100 mg 10/07/20 09:00 10/07/20 22:03 Doxycycline Hyclate 100 Mg Tablet PO 100 mg Q12HR DERRICK Administration Ergocalciferol 50,000 unit 10/07/20 09:00 10/07/20 08:50 Ergocalciferol 50,000 Unit Capsule PO 11/11/20 09:01 50,000 unit WEEKLY DERRICK Administration Escitalopram Oxalate 10 mg 10/06/20 09:00 10/07/20 08:50 Escitalopram Oxalate 10 Mg Tablet PO 10 mg DAILY DERRICK Administration Famotidine 20 mg 10/06/20 21:00 10/07/20 20:28 Famotidine 20 Mg Tablet PO 20 mg Q12HR DERRICK Administration Ferrous Sulfate 324 mg 10/08/20 09:00 Ferrous Sulfate 324 Mg Tablet PO DAILY DERRICK Glimepiride 2 mg 10/07/20 08:00 10/07/20 08:48 Glimepiride 2 Mg Tablet PO 2 mg DAILY@0800 DERRICK Administration Glucagon 1 mg 10/06/20 17:33 Glucagon For Inj 1 Mg Vial IM PRN PRN Hypoglycemia Protocol Glucose 15 gm 10/06/20 17:33 Glucose Oral Gel 15 Gm Of Glucse In 37.5 Gm Tube PO PRN
[2020-10-08 08:23] LABS: Glucose Point of Care 171 mg/dl (65-105)
[2020-10-08] MEDS: GLIMEPIRIDE 2 MG TABLET PO (09:10)
[2020-10-08] MEDS: metFORMIN HCL 500 MG TABLET 1000 MG PO (09:10)
[2020-10-08] MEDS: APIXABAN 2.5 MG TABLET PO (09:11)
[2020-10-08] MEDS: FAMOTIDINE 20 MG TABLET PO (09:11)
[2020-10-08] MEDS: ESCITALOPRAM OXALATE 10 MG TABLET PO (09:11)
[2020-10-08] MEDS: DOXYCYCLINE HYCLATE 100 MG TABLET PO (09:11)
[2020-10-08] MEDS: FERROUS SULFATE 324 MG TABLET PO (09:12)
[2020-10-08] MEDS: PRAVASTATIN SODIUM 20 MG TABLET 40 MG PO (09:12)
[2020-10-08] MEDS: LOSARTAN POTASSIUM 50 MG TABLET PO (09:15)
[2020-10-08 10:00] VITALS: BP 118/72; PULSE 76; RESP 20; TEMP 37.2; O2SAT 96
[2020-10-08 10:17] VITALS: BP 130/50; PULSE 77
--- NOTE | 2020-10-08 11:46 | P.DS_ITS ---
DS: Admitting Diagnosis Admitting Diagnosis Admitting Diagnosis: Left hip fracture DS: Discharge Diagnosis Discharge Diagnosis (1) Closed fracture of proximal end of femur: Code(s): S72.009A - Fracture of unspecified part of neck of unspecified femur, initial encounter for closed fracture Status: Acute Assessment and Plan: * Status post left femur repair * Care per ortho * infection control: Aztreonam 1gm q8hr, vancomycin 1000 q12hr, Doxycycline 100mg PO Q12hr * Pain control:Tylenol 1000mg PO Q6hr, oxycodone 2.5mg PO Q4hr, Morphine 2mg IV Q3/4hr PRN, Roxicodone 5mg Q4hr PRN * Nausea:Zofran 4mg Q4hr * Bowel regimen: MOM, Mylanta, Senokot * SUPPORTIVE CARE * PAIN MANAGEMENT * ORTHO CONSULTED * PT/OT-up to chair with meals * VTE Apixaban 2.5 PO Q12hr (2) Acute blood loss anemia: Code(s): D62 - Acute posthemorrhagic anemia Status: Acute Assessment and Plan: * Hemoglobin is 8.5 today * Probably related to the surgery * Will start some iron 324mg PO daily * Trend H/H * Labs in the AM (3) Type 2 diabetes mellitus without complication, with no history of insulin use: Code(s): E11.9 - Type 2 diabetes mellitus without complications Status: Acute Assessment and Plan: * Glucose is running more elevated at 227 per POC * ACCU-CHEKS AC AND HS * Continue home Sitagiptin 50mg PO, Glimepiride 2mg PO daily, * Sliding scale * trend glucose * Labs in the AM * Adjust mediations as needed (4) Essential (primary) hypertension: Code(s): I10 - Essential (primary) hypertension Status: Acute Assessment and Plan: * 103/50 currently * Trend blood pressure * Continue home losartan 50 mg p.o. daily * Might hold if needed * Adjust medications as needed (5) Status post total right knee replacement: Code(s): Z96.651 - Presence of right artificial knee joint Status: Acute Assessment and Plan: * STABLE (6) Anxiety and depression: Code(s): F41.9 - Anxiety disorder, unspecified; F32.9 - Major depressive disorder, single episode, unspecified Status: Acute Assessment and Plan: * Continue home Lexapro 10 mg p.o. daily DS: Summary Hospital Course Hospital Course: Patient is a 75-year-old male who has a past medical history of anxiety and depression hypertension type 2 diabetes who came to the ED on 10/05/2020 after being drug by his lawnmower. Patient's foot got stuck and twisted and he has suffered a proximal shaft displacement fracture of the left femur. Patient had femur repair done on 10/06/[address] Schumacher. Patient has also been treated by physical therapy who has walked him in the halls and has had him up and down stairs. Patient stated that he did have some pain throughout the night in which he was given another 2.5 oxycodone that worked. Patient states that he is ready to go home and he feels great. Orozco catheter has been taken out patient is voiding per urinal. Patient has no current complaints and ortho also said it was okay for patient to go home. Blood pressure has been okay upon admission is blood pressure was low however patient has been able to tolerate his home meds and blood pressure is maintained around 130s systolically.Patient denies chest pain, shortness of breath, vomiting, nausea, weakness, fatigue, chills, sweats, headache, numbness and tingling, falls, syncope, or abnormal urination. Status a
--- NOTE | 2020-10-08 11:46 | PM.DS ---
DS: Admitting Diagnosis Admitting Diagnosis Admitting Diagnosis: Left hip fracture DS: Discharge Diagnosis Discharge Diagnosis (1) Closed fracture of proximal end of femur: Code(s): S72.009A - Fracture of unspecified part of neck of unspecified femur, initial encounter for closed fracture Status: Acute Assessment and Plan: Status post left femur repair Care per ortho infection control: Aztreonam 1gm q8hr, vancomycin 1000 q12hr, Doxycycline 100mg PO Q12hr Pain control:Tylenol 1000mg PO Q6hr, oxycodone 2.5mg PO Q4hr, Morphine 2mg IV Q3/4hr PRN, Roxicodone 5mg Q4hr PRN Nausea:Zofran 4mg Q4hr Bowel regimen: MOM, Mylanta, Senokot SUPPORTIVE CARE PAIN MANAGEMENT ORTHO CONSULTED PT/OT-up to chair with meals VTE Apixaban 2.5 PO Q12hr (2) Acute blood loss anemia: Code(s): D62 - Acute posthemorrhagic anemia Status: Acute Assessment and Plan: Hemoglobin is 8.5 today Probably related to the surgery Will start some iron 324mg PO daily Trend H/H Labs in the AM (3) Type 2 diabetes mellitus without complication, with no history of insulin use: Code(s): E11.9 - Type 2 diabetes mellitus without complications Status: Acute Assessment and Plan: Glucose is running more elevated at 227 per POC ACCU-CHEKS AC AND HS Continue home Sitagiptin 50mg PO, Glimepiride 2mg PO daily, Sliding scale trend glucose Labs in the AM Adjust mediations as needed (4) Essential (primary) hypertension: Code(s): I10 - Essential (primary) hypertension Status: Acute Assessment and Plan: 103/50 currently Trend blood pressure Continue home losartan 50 mg p.o. daily Might hold if needed Adjust medications as needed (5) Status post total right knee replacement: Code(s): Z96.651 - Presence of right artificial knee joint Status: Acute Assessment and Plan: STABLE (6) Anxiety and depression: Code(s): F41.9 - Anxiety disorder, unspecified; F32.9 - Major depressive disorder, single episode, unspecified Status: Acute Assessment and Plan: Continue home Lexapro 10 mg p.o. daily DS: Summary Hospital Course Hospital Course: Patient is a 75-year-old male who has a past medical history of anxiety and depression hypertension type 2 diabetes who came to the ED on 10/05/2020 after being drug by his lawnmower. Patient's foot got stuck and twisted and he has suffered a proximal shaft displacement fracture of the left femur. Patient had femur repair done on 10/06/[address] Schumacher. Patient has also been treated by physical therapy who has walked him in the halls and has had him up and down stairs. Patient stated that he did have some pain throughout the night in which he was given another 2.5 oxycodone that worked. Patient states that he is ready to go home and he feels great. Orozco catheter has been taken out patient is voiding per urinal. Patient has no current complaints and ortho also said it was okay for patient to go home. Blood pressure has been okay upon admission is blood pressure was low however patient has been able to tolerate his home meds and blood pressure is maintained around 130s systolically.Patient denies chest pain, shortness of breath, vomiting, nausea, weakness, fatigue, chills, sweats, headache, numbness and tingling, falls, syncope, or abnormal urination. Status at Discharge Functional status at discharge: uses cane/walker Overall status at discharge: patient is progressing back to baseline Time Spent with Patient Time attestation: Total time spent providing and/or coordinating discharge services: Documentation, results review, medication adjustments, bedside education it Time spent: Greater than 30 minutes Exam Const: General: cooperative, healthy appearing, comfortable, no acute distress, well developed, alert, awake, Physically active, lethargic and tir
[2020-10-08 12:27] LABS: Glucose Point of Care 126 mg/dl (65-105)
[2020-10-08 18:07] LABS: PSA, Free 0.77 ng/mL; PSA, Total 2.1 ng/mL (<=4.0)
--- NOTE | 2020-10-14 14:20 | PC.NURSE ---
Home medications returned to by executive secretary social welfare Brie.
== END 2020-10-08 13:52 | disposition home health service (06) | DRG 481 ==
LOC: ANHED 16:48 → ANH2MED 10-06 06:04
PROVIDERS: Nurse Practitioner; Orthopaedic Surgery; Physician Assistant Surgical; Admitting Provider Internal Medicine; Emergency Provider Emergency Medicine; PCP Internal Medicine; Visit Provider Internal Medicine
PROC: 0QS704Z Reposition Left Upper Femur with Internal Fixation Device, Open Approach (ICD-10-PCS; CPT 27245; principal; 2020-10-06 07:30)
DX: M84.552A Pathological fracture in neoplastic disease, left femur, initial encounter for fracture (principal); K86.2 Cyst of pancreas; D62 Acute posthemorrhagic anemia; C79.51 Secondary malignant neoplasm of bone; X50.9XXA Other and unspecified overexertion or strenuous movements or postures, initial encounter; Y93.H2 Activity, gardening and landscaping; E11.9 Type 2 diabetes mellitus without complications; I10 Essential (primary) hypertension; E78.2 Mixed hyperlipidemia; F32.9 Major depressive disorder, single episode, unspecified; F41.9 Anxiety disorder, unspecified; Z96.653 Presence of artificial knee joint, bilateral; Z79.84 Long term (current) use of oral hypoglycemic drugs; Z79.899 Other long term (current) drug therapy; Z85.46 Personal history of malignant neoplasm of prostate; Z88.0 Allergy status to penicillin; Z88.2 Allergy status to sulfonamides
CPT/HCPCS: 36415; 71045; 73502; 73552; 80048; 82306; 82948; 84153; 84154; 85025; 85027; 85610; 85730; 86850; 86900; 86901; 88304; 88305; 88309; 88311; 88342; 93005; 96361; 96374; 97110; 97116; 97161; 97165; 97530; 99285; A9270; C1713; J0330; J1100; J1815; J1885; J2270; J2405; J2704; J3010; J3370; J3480; J7030; J7120

== ENCOUNTER 2020-10-27 16:01 | Outpatient (CLI) | payer OTHER, SELFPAY ==
[2020-10-27 16:17] LABS: Basophils Percent Auto 0.5 % (0.2-1.2); Eosinophils Absolute Auto 0.2 K/mm3 (0-0.3); Eosinophils Percent Auto 3.2 % (0-4.4); Hematocrit 36.7 % (42.0-52.0); Hemoglobin 12.1 g/dL (14.0-18.0); Immature Granulocyte Absolute 0.02 K/mm3 (0.00-0.031); Immature Granulocyte Percent A 0.4 % (0-0.5); Immature Reticulocyte Fraction 20.3 % (3.0-15.9); Lymphocytes Absolute Auto 1.12 K/mm3 (0.9-3.2); Mean Corpuscular Hemoglobin 31.3 pg (26-34); Mean Corpuscular Volume 94.8 fl (80-100); Mean Platelet Volume 9.1 fl (7.4-10.4); Monocytes Absolute Auto 0.4 K/mm3 (0.1-0.6); Monocytes Percent Auto 7.7 % (2.6-8.5); Neutrophils Absolute Auto 3.8 K/mm3 (1.3-6.7); Neutrophils Percent Auto 68.2 % (45.5-73.1); Platelet Count Result 260 k/mm3 (150-375); Red Blood Count 3.87 M/mm3 (4.6-6.20); Red Cell Distribution Width 13.8 % (11.5-14.5); Reticulocyte Hemoglobin Conten 35.3 pg (28.2-35.7); Reticulocyte Percent 3.86 % (0.7-4.3); Reticulocytes Absolute 0.15 B/L (32.2-175.7); White Blood Count 5.6 K/mm3 (4.5-10.0)
[2020-10-27 16:51] LABS: Iron 98 ug/dL (49-181)
[2020-10-27 16:53] LABS: Alanine Aminotransferase 18 U/L (4-50); Albumin Level 4.6 g/dL (3.5-5.1); Alkaline Phosphatase 282 U/L (38-126); Anion Gap 11 mmol/L (8-16); Aspartate Amino Transferase 26 U/L (17-59); Bilirubin,Total 0.6 mg/dL (0.2-1.3); Blood Urea Nitrogen 19 mg/dL (9-20); Calcium 9.9 mg/dL (8.4-10.2); Carbon Dioxide 27 mmol/L (22-30); Chloride 101 mmol/L (98-107); Estimated Glomerular Filt Rate > 60; Glucose 123 mg/dL (75-110); Potassium 4.8 mmol/L (3.4-5.0); Sodium 139 mmol/L (137-145)
[2020-10-27 17:01] LABS: Percent Iron Saturation 31 % (20-50)
[2020-10-27 18:02] LABS: Folic Acid > 20.0 ng/mL (2.76->20)
== END 2020-10-27 16:02 | disposition home or self-care (01) ==
LOC: ANHLAB 16:05
PROVIDERS: PCP Internal Medicine; Visit Provider Internal Medicine Hematology & Oncology
DX: C61 Malignant neoplasm of prostate (principal)
CPT/HCPCS: 36415; 80053; 82607; 82728; 82746; 83540; 83550; 85025; 85046

== ENCOUNTER 2020-10-30 07:44 | Outpatient (CLI) | payer OTHER, SELFPAY ==
--- NOTE | ~2020-10-30 | PE_ITS ---
EXAMINATION: PET skull to mid thigh DATE: 10/30/2020 09:48 INDICATION: Prostate cancer. TECHNIQUE: 9.5 mCi of 18-fluorodeoxyglucose (18-FDG) was administered i.v. Low dose computed tomograp hy (CT) images were acquired from the base of the brain to the proximal thighs for attenuation correc tion and anatomic localization. Positron emission tomography (PET) images were acquired after injecti on. Images including fused PET/CT images were reconstructed in axial, coronal, and sagittal planes. A utomatic exposure control is employed as a dose reduction technique. COMPARISON: CT abdomen dated 07/25/2017 FINDINGS: Head/neck: Mildly enlarged right thyroid lobe containing 2.2 cm mass without significant associated FDG uptake. Consider correlation with thyroid ultrasound. No hypermetabolic activity is identified in the neck. M ucosal and parapharyngeal spaces are symmetric. No significant cervical lymphadenopathy. Chest: There is atherosclerosis of the aorta without aneurysm. There is coronary atherosclerosis. Heart size is normal. No significant pleural or pericardial effusion. There is an 8 mm right middle lobe nodule , image 275 without significant abnormal FDG uptake. No additional masses are identified. There is hi atal hernia with thickening of the distal esophagus, suspicious for esophagitis. Heart size normal. N o thoracic lymphadenopathy. Abdomen/pelvis/proximal thighs: The liver, spleen, pancreas, right adrenal gland and right kidney are unremarkable. Severe left renal atrophy. There are nonobstructing left renal stones. There is a 2 cm left adrenal adenoma. Nonobstru ctive bowel gas pattern. Gallbladder is present. Small fat-containing umbilical hernia. Colonic diver ticula without evidence for diverticulitis. There is subcutaneous gas in the anterior abdominal wall, likely from recent injections. There are surgical clips in the prostate bed. There are changes of le ft inguinal hernia repair. No abnormal pelvic masses or fluid collections. 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 There is a dynamic compression s crew with intramedullary christy in the left femur proximally. No hypermetabolic activity is identified i n the osseous structures to suggest metastatic disease. There is partial ankylosis of the sacroiliac joints. IMPRESSION: 1. No evidence for metastatic disease. 2: 8 mm right middle lobe nodule, likely benign. Follow-up low dose CT chest in 6 months recommended . 3: Right thyroid mass measuring 2.2 cm without associated abnormal FDG uptake, likely benign. Follow- up thyroid ultrasound recommended for further characterization. Reviewed, dictated and finalized at location A. IMPRESSION: 1. No evidence for metastatic disease. 2: 8 mm right middle lobe nodule, likely benign. Follow-up low dose CT chest i n 6 months recommended. 3: Right thyroid mass measuring 2.2 cm without associated abnormal FDG uptake, likely benign. Follow-up thyroid ultrasound recommended for further characteriz ation.
[2020-10-30 08:08] LABS: Glucose Point of Care 178 mg/dl (65-105)
== END 2020-10-30 07:45 | disposition home or self-care (01) ==
PROVIDERS: PCP Internal Medicine Hematology & Oncology; Visit Provider Internal Medicine Hematology & Oncology
DX: Z03.89 Encounter for observation for other suspected diseases and conditions ruled out (principal); C61 Malignant neoplasm of prostate; Z51.81 Encounter for therapeutic drug level monitoring; Z79.899 Other long term (current) drug therapy
CPT/HCPCS: 78815; 82948; A9552

== ENCOUNTER 2020-11-04 09:24 | Outpatient (CLI) | payer OTHER, SELFPAY ==
--- NOTE | ~2020-11-04 | NM_ITS ---
EXAMINATION: NM bone scan whole body DATE: 11/04/2020 14:12 INDICATION: Prostate cancer TECHNIQUE: 25.4 mCi Tc-99m HDP was administered intravenously. Delayed whole-body scintigrams were o btained. COMPARISON: PET/CT dated 10/30/2020 FINDINGS: Extensive marked increased bone uptake throughout margin the left femoral diaphysis most prominent in the subtrochanteric diaphysis at the site of a recent fracture with subsequent internal fixation wit h reported tissue at the site of biopsy positive for metastatic prostate cancer. There are numerous v qian small yet intense foci of bone uptake pattern throughout the axial and appendicular skeleton in l ocation not typically associated with degenerative disease. This includes in the contralateral left f emoral diaphysis, the right humeral diaphysis and at multiple locations in the skull, ribs, spine and pelvis. One of the rib lesions is associated with a fracture at the lateral right sixth rib. The rem ainder are without evident correlate on the CT images. More typical foci of likely degenerative joint centered uptake at the bilateral mid feet. There are also small foci of uptake at the margins of sylvia ateral photopenic total knee arthroplasties. Severe atrophy of the left kidney. IMPRESSION: 1. Numerous scattered foci of relatively intense uptake given the small size scattered throughout the axial and appendicular skeleton consistent with widespread metastatic disease. 2. More intense uptake at the proximal left femur likely due to combination of recent fracture and graves bsequent internal fixation as well as pathology proven metastatic prostate cancer at the site of the fracture patient tissue collected at the time of the fixation. 3. Severe left renal atrophy. Reviewed, dictated and finalized at location A. IMPRESSION: 1. Numerous scattered foci of relatively intense uptake given the small size sc attered throughout the axial and appendicular skeleton consistent with widespre ad metastatic disease. 2. More intense uptake at the proximal left femur likely due to combination of recent fracture and subsequent internal fixation as well as pathology proven me tastatic prostate cancer at the site of the fracture patient tissue collected a t the time of the fixation. 3. Severe left renal atrophy.
== END 2020-11-04 09:25 | disposition home or self-care (01) ==
PROVIDERS: PCP Internal Medicine Hematology & Oncology; Visit Provider Internal Medicine Hematology & Oncology
DX: C61 Malignant neoplasm of prostate (principal)
CPT/HCPCS: 78306; A9561

== ENCOUNTER 2021-01-05 08:49 | Outpatient (CLI) | payer OTHER, SELFPAY ==
--- NOTE | ~2021-01-05 | NM_ITS ---
EXAMINATION: NM bone scan whole body DATE: 01/05/2021 13:45 INDICATION: Metastatic prostate cancer TECHNIQUE: 24.5 mCi Tc-99m HDP was administered intravenously. Delayed whole-body scintigrams were o btained. COMPARISON: 11/04/2020 and PET/CT dated 10/30/2020 FINDINGS: Interval increase in degree of uptake associated with multiple scattered foci of likely metastatic di sease throughout the axial and appendicular skeleton. There are a few lesions which appear new since the prior study. There is decrease in the degree of uptake at a subtrochanteric fracture of the proxi mal left femur and at the margins of the intramedullary christy and femoral neck screw fixation. Photopen ic defects are seen at the bilateral knees consistent with total knee arthroplasties. Likely degenera tive joint centered uptake at the bilateral mid feet. Severe left renal atrophy. IMPRESSION: 1. Interval progression of widespread osseous metastatic disease. 2. Decrease in uptake associated with subtrochanteric fracture and associated internal fixation at th e proximal left femur consistent with interval healing. 3. Severe left renal atrophy. Reviewed, dictated and finalized at location B. IMPRESSION: 1. Interval progression of widespread osseous metastatic disease. 2. Decrease in uptake associated with subtrochanteric fracture and associated i nternal fixation at the proximal left femur consistent with interval healing. 3. Severe left renal atrophy.
== END 2021-01-05 08:50 | disposition home or self-care (01) ==
LOC: ANHIMG 08:52
PROVIDERS: PCP Internal Medicine; Visit Provider Internal Medicine Hematology & Oncology
DX: C61 Malignant neoplasm of prostate (principal); C79.51 Secondary malignant neoplasm of bone; N26.1 Atrophy of kidney (terminal)
CPT/HCPCS: 78306; A9561

== ENCOUNTER 2021-07-27 08:04 | Outpatient (CLI) | payer OTHER, SELFPAY ==
--- NOTE | ~2021-07-27 | NM_ITS ---
EXAMINATION: NM bone scan whole body DATE: 07/27/2021 12:38 INDICATION: Prostate cancer. TECHNIQUE: 23.6 mCi Tc-99m HDP was administered intravenously. Delayed whole-body scintigrams were o btained. COMPARISON: PET/CT 10/30/2020, chest single view 10/05/2020 bone scan 01/05/2021 FINDINGS: There are greater than 40 scattered foci of increased activity in the axial skeleton and pr oximal appendicular skeleton. There are bilateral knee arthroplasties. There is increased activity in the feet without radiographic comparison, likely osteoarthritis. IMPRESSION: 1. Worsened number and distribution of scattered foci of increased activity in the bones, consistent with metastatic disease. Reviewed, dictated and finalized at location A.
== END 2021-07-27 08:05 | disposition home or self-care (01) ==
PROVIDERS: PCP Internal Medicine; Visit Provider Internal Medicine Hematology & Oncology
DX: C61 Malignant neoplasm of prostate (principal)
CPT/HCPCS: 78306; A9561

== ENCOUNTER 2021-08-10 02:18 | Day surgery (SDC) | payer OTHER, SELFPAY ==
--- NOTE | 2021-08-07 08:25 | PC.NURSE ---
Report to the Outpatient Waiting Room, entrance under the green pavilion located off [facility], at time 1100 on date __08/10/21____. OR Time: 1300 . - You and your visitor will be asked a series of questions to screen for COVID 19 for your protection. - A mask is required within the hospital. Preoperative COVID Testing Requirements: No COVID Test needed if: (proof is required; if not received patient will have Rapid Test prior to entry) - Patient has received COVID Vaccine at least 14 days prior to procedure date or - Patient has positive COVID test result within last 90 days of surgery date. COVID Test needed if above criteria is not met If not COVID vaccinated a COVID test must be conducted within 72 hours of surgery and patient is asked to isolate self from time of testing until procedure. You will go to the [employer] [facility] for your COVID testing. The [employer] [facility] site is located at the corner of [address] [facility]. You will only be called if COVID results are positive and your surgeon may reschedule your elective surgery date. Patients may have clear liquids (water, carbonated beverages, clear teas, apple juice) until 3 hours prior to surgery with a maximum of 20 ounces. - No food from midnight until time of surgery - Infants may have breast milk until 4 hours before surgery, infant formula 6 hours prior to surgery. - Children will be allowed to drink immediately following surgery. If applicable, please bring a bottle or sippy cup to assist with drinking. Juice, water, soda, and popsicles are readily available. For infants on formula, please bring formula the day of surgery. Pacifiers are allowed. Take the following medications with a SIP of water the morning of surgery: NONE Medications to discontinue per physician ___VITAMIN D 3 DAYS PRE OP Date to take last dose__08/06/21 Please no make-up, nail turkmen, hairspray, perfume, deodorant, or body powder the day of surgery. No jewelry (including any body piercings) or valuables the day of surgery, leave them at home. Please take a shower or bath the night before, or the morning of, surgery with an antibacterial soap. Wear comfortable, loose fitting clothing. Children are encouraged to wear pajamas. - Jewelry must be removed prior to entering the operating room. Rings and piercings that are not removed may be cut off. - The hospital will not accept responsibility for valuables. - Please leave all valuables, including medications, at home the day of surgery. If you are going home after surgery, a licensed transport driver must drive you home. - NO public transportation without another adult. - We recommend that an adult stay with you for 24 hours following discharge. - We also recommend that you do not drive, make important decision, drink alcoholic beverages, or take any drugs that were not prescribed by your health care provider for at least 24 hours after your discharge time. For Pediatric surgeries, we recommend two adults accompany the child home (only one inside the building at this time). One visitor will be allowed to accompany the patient into the hospital. Patients visitor will be instructed to remain with patient at all times or leave the building. We will allow the visitor to come back to the postoperative area when patient is ready. Follow any additional instructions given to you from your surgeon. Telephone instructions given to PATIENT and asked if any additional questions and then verbalized understanding. Patient advised to call surgeon office or pre surgery nurse liaison [phone] if any additional questions.
[2021-08-07 08:27] VITALS: BMI 25.8
--- NOTE | 2021-08-09 19:26 | PM.HPGS ---
History of Present Illness History of Present Illness Consent: Risks, benefits, and alternatives of placement Port-A-Cath have been discussed and questions answered. Patient agrees to proceed with procedure. Chief complaint: prostate cancer Narrative: Roney Mason is a 76 year old male who had prostate cancer for some time period he was 1st diagnosed in November of 2017. He has had various treatments but now has bone metastasis and Dr. Zuleta, his oncologist, is planning to begin IV chemotherapy plus Lupron. Patient presents at this time for placement a Port-A-Cath. See plan below. Review of Systems Review of Systems: All systems reviewed & are unremarkable except as noted in HPI and below Constitutional: Constitutional: Reports no additional constitutional complaints and Denies malaise Eyes: Eyes: Denies change in vision and Denies loss of vision ENT: Reports Normal hearing present, Denies change in voice, Denies dizziness, Denies hoarseness and Denies sore throat Cardiovascular: Cardiovascular: Denies chest pain, Denies leg edema and Denies dyspnea Comments: History of hypertension and hyperlipidemia on medications. Respiratory: Respiratory: Denies cough, Denies dyspnea and Denies wheezing Gastrointestinal: Gastrointestinal: Denies hematochezia, Denies change in bowel habits and Denies heartburn Comments: history of a pancreatic cyst. Genitourinary: Genitourinary: Denies urinary frequency and Denies urinary incontinence Comments: known prostate cancer with bone metastasis. Neurologic: Reports Normal hearing present, Denies confusion, Denies dizziness, Denies loss of vision, Denies memory loss and Denies seizure-like activity Psychiatric: Psychiatric: Reports anxiety, Denies confusion, Reports depression ( Has discussed with his PCP and is on medication) and Denies memory loss Endocrine: Endocrine: Denies cold intolerance and Reports fatigue Comments: known type 2 diabetes mellitus on treatment known vitamin-D deficiency on treatment Hematologic/Lymphatic: Hematologic/Lymphatic: Denies easy bleeding and Denies easy bruising Allergic/Immunologic: Allergic/Immunologic: Denies wheezing PMFSH Past Medical History Medical History Anxiety and depression (Unknown) Bone cancer Cyst of pancreas Essential (primary) hypertension (Unknown) Mixed hyperlipidemia (Unknown) Prostate cancer metastatic to bone (~06/2021) Type 2 diabetes mellitus without complication, with no history of insulin use (Unknown) Surgical History Surgical History History of total knee arthroplasty Bilateral Family History Family History Father Lung cancer Social History Social History Smoking status: Never smoker Second hand tobacco smoke exposure: No Alcohol intake: current Drinks per week: 2 Alcohol use details: one or 2 a week Substance use: never Substance use type: does not use Living arrangements: with family Spiritual care concerns: No Meds Home Medications and Allergies Home Medications Medication Instructions Recorded Confirmed Type blood sugar diagnostic #200 ea 12/18/20 08/05/21 Rx blood-glucose meter #1 ea 12/18/20 08/05/21 Rx lancets #200 ea 12/18/20 08/05/21 Rx denosumab 120 mg/1.7 mL (70 mg/mL) 120 mg SUBCUT MONTHLY 12/24/20 08/07/21 History subcutaneous solution leuprolide 7.5 mg (1 month) 7.5 mg SUBCUT MONTHLY 12/24/20 08/07/21 History subcutaneous syringe empagliflozin 25 mg tablet See Rx Instructions .ROUTE 01/06/21 08/07/21 Rx .COMPLEX #90 tablet enzalutamide [Xtandi] 160 mg PO DAILY 02/17/21 08/07/21 History losartan 50 mg tablet 50 mg PO DAILY #90 tablet 04/10/21 08/07/21 Rx sitagliptin 50 mg-metformin 1,000 1 tablet PO BID #180 tablet 07/02/21 08/07/21 Rx m
--- NOTE | ~2021-08-10 | XR_ITS ---
EXAMINATION: XR chest port-a-cath/central DATE: 08/10/2021 14:16 INDICATION: Port placement. TECHNIQUE: A single frontal view of the chest was obtained. COMPARISON: Chest single view 10/05/2020, PET CT 10/30/2020, bone scan 07/27/2021 FINDINGS: There is mild atelectasis at left lung base. No pleural effusion or pneumothorax. The heart size is normal. There is a right internal jugular port with tip in superior vena cava. There are sca ttered sclerotic lesions of bone. IMPRESSION: 1. Port tip in superior vena cava. 2. Scattered sclerotic lesions of bone, consistent with metastatic disease. Reviewed, dictated and finalized at location A.
--- NOTE | ~2021-08-10 | XR_ITS ---
EXAMINATION: XR fl guide central line place DATE: 08/10/2021 13:53 INDICATION: Port catheter insertion TECHNIQUE: A fluoroscopic image of the right chest was obtained during procedure performed by Dr. Elier lara. Radiologist was not present for the imaging or procedure. The amount of fluoroscopy time used d uring this procedure was 0.6 minutes. FINDINGS: Right internal jugular central venous port catheter with distal tip near the superior cavoatrial junc tion. No pneumothorax. Radiopaque marker for a lap sponge projects over the lateral right supraclavic ular region. IMPRESSION: 1. Right internal jugular central venous port catheter in expected position. Reviewed, dictated and finalized at location A.
--- NOTE | 2021-08-10 08:11 | WPDANESEPPF ---
Anes - Initial Pre Proc Eval Procedure: Operation Date: 08/10/21 13:00 Proposed Procedures p Insertion Shanelle Cath - Zion Cantor MD Date/Time: 08/10/21 08:11 Surgeon: Zion Cantor MD Pre Op Diagnosis: prostate cancer Patient Data Age: 76 Gender: M Height: 1.73 m Weight: 77.15 kg Allergies Allergy/AdvReac Type Severity Reaction Status Date / Time Sulfa (Sulfonamide Allergy Unknown Rash Verified 08/10/21 12:30 Antibiotics) Penicillins AdvReac Unknown Swelling Verified 08/10/21 12:30 Home Medications Medication Instructions Recorded Confirmed Type blood sugar diagnostic #200 ea 12/18/20 08/05/21 Rx blood-glucose meter #1 ea 12/18/20 08/05/21 Rx lancets #200 ea 12/18/20 08/05/21 Rx denosumab 120 mg/1.7 mL (70 mg/mL) 120 mg SUBCUT MONTHLY 12/24/20 08/07/21 History subcutaneous solution leuprolide 7.5 mg (1 month) 7.5 mg SUBCUT MONTHLY 12/24/20 08/07/21 History subcutaneous syringe empagliflozin 25 mg tablet See Rx Instructions .ROUTE 01/06/21 08/07/21 Rx .COMPLEX #90 tablet enzalutamide [Xtandi] 160 mg PO DAILY 02/17/21 08/07/21 History losartan 50 mg tablet 50 mg PO DAILY #90 tablet 04/10/21 08/07/21 Rx sitagliptin 50 mg-metformin 1,000 1 tablet PO BID #180 tablet 07/02/21 08/07/21 Rx mg tablet zolpidem 6.25 mg tablet,extended 6.25 mg PO PRN PRN 07/02/21 08/07/21 History release,multiphase atorvastatin 40 mg PO HS 08/07/21 08/07/21 History cholecalciferol (vitamin D3) 125 mcg PO DAILY 08/07/21 08/07/21 History glimepiride 2 mg tablet 2 mg PO DAILY #90 tablet 08/09/21 Rx Patient hx anesthesia problems: none Family hx anesthesia problems: none Results Review: All pre-operative results and documents have been reviewed as part of the pre-operative evaluation. [facility] Past Medical History Medical History Anxiety and depression (Unknown) Bone cancer Cyst of pancreas Essential (primary) hypertension (Unknown) Mixed hyperlipidemia (Unknown) Prostate cancer metastatic to bone (~06/2021) Type 2 diabetes mellitus without complication, with no history of insulin use (Unknown) Surgical History Surgical History History of total knee arthroplasty Bilateral Family History Family History Father Lung cancer Social History Social History Smoking status: Never smoker Second hand tobacco smoke exposure: No Alcohol intake: current Drinks per week: 2 Alcohol use details: one or 2 a week Substance use: never Substance use type: does not use Living arrangements: with family Spiritual care concerns: No Anes - Eval Final PreProcedure Day of Procedure 08/10/21 08:11 Patient weight: normal Heart: regular rate and rhythm Lungs: clear to auscultation and normal air movement Airway: Mallampati scale class II Neurological: alert and oriented Last oral intake: >/= 8 hours ASA classification: III Emergent: no Anesthetic plan: proceed Anesthesia type and monitoring: general GIVS Results Review: All pre-operative results and documents have been reviewed as part of the pre-operative evaluation. Informed Consent: The patient's anesthetic plan and its attendant risks and benefits were discussed with the patient/family/POA. Questions were solicited and answers provided to the satisfaction of the patient/family/POA.
[2021-08-10 12:00] VITALS: BP 119/52; PULSE 69; RESP 18; TEMP 36.2; O2SAT 97
[2021-08-10] MEDS: KETOROLAC 15 MG/ML VIAL (*BKC) IV PUSH (12:05)
[2021-08-10] MEDS: LACTATED RINGERS 1,000 ML 30 ML IV CONT (12:06)
[2021-08-10 12:15] LABS: Glucose Point of Care 211 mg/dl (65-105)
[2021-08-10 12:22] LABS: Prothrombin Time 12.7 Seconds (11.1-14.7)
[2021-08-10 12:23] LABS: Partial Thromboplastin Time 29.3 SECONDS (22.3-36.8)
--- NOTE | 2021-08-10 13:04 | WPDHPUPDATE1 ---
History and Physical Update Update Date/Time: 08/10/21 13:04 History and Physical has been reviewed, including an updated exam of the patient. There are NO changes in the patient's condition. Risks, benefits, and alternatives have been discussed and questions answered. Patient agrees to proceed with procedure.
[2021-08-10] MEDS: ceFAZolin 2 GM/D5W 50 ML 2 GM/50 ML BAG IVPB (13:10)
[2021-08-10] MEDS: HEPARIN SODIUM 5,000 UNITS/ML VIAL 5000 UNITS IRRIGATION (13:25)
--- NOTE | 2021-08-10 13:59 | SUR.OPER ---
POWER PORT EXP 2022-05-15, LOT [id number]
[2021-08-10 14:06] VITALS: BP 109/50; PULSE 66; RESP 14; O2SAT 95
[2021-08-10 14:11] LABS: Glucose Point of Care 197 mg/dl (65-105)
--- NOTE | 2021-08-10 14:23 | SUR.PHASEII ---
PORTABLE CXR DONE. DR. COFFEY HERE TO SEE PT.
--- NOTE | 2021-08-10 14:29 | W.PM.PROC2 ---
Procedure Note - Detailed Date of Procedure 08/10/21 Pre-op Diagnosis prostate cancer with bone metastasis Post-op Diagnosis Same Procedure Performed Ultrasound guided Placement of Shanelle-cath Surgeon Zion Cantor MD Shoe Repairman Aletha VIERA.OR first officer and flight instructor Anesthesia Local (with 0.25% Marcaine with epinepherine) and Other (GIVS) Indications Patient has prostate cancer that now is known to be metastatic to bone. Therefore, Dr. Zuleta is planning IV chemo or immunotherapy. A MediPort was requested. Findings Normal appearing vascular anatomy in the right neck Description of Procedure Patient was seen and marked in the pre-op area prior to coming to the OR. Patient was brought to the operating room. Patient was placed supine on the operating table and general IV sedation was induced. The nurse recreational therapy aide provided oxygen and IV sedation. Patient's head was carefully turned to the left side while in the supine position and the patient's entire neck and anterior chest on both sides was prepped and draped in the usual sterile fashion. Following this the appropriate time-out was completed confirming procedure and patient. We confirmed that all the needed equipment was present in the room. Following this the ultrasound probe was draped into the field and using the probe we carefully identified the carotid artery and jugular vein on the right neck. We then took a picture of the vascular anatomy of the neck and transferred from the ultrasound to the Collibra chart. I marked the skin directly over the Rt. internal jugular vein. I then used an 11 blade knife to make a small luís in the skin. Following this, using the continuous ultrasound guidance, a Cook needle was placed through the skin incision and on into this vein. I then was able to draw back good dark blood. Once this was completed a guidewire using a J-tip was advanced through the needle and then the needle and the guidewire cover were withdrawn. C-arm fluoroscopy was used to confirm that the guidewire was nicely in the venous system. Once this was confirmed with the C - arm, I preceded on by making the pocket for the port on the patient's anterior right chest approximately 3 centimeters below the clavicle overlying the chest wall. Local anesthetic was infiltrated into the skin where there was a transverse incision marked out. Incision was made and we made a pocket inferior to the incision with just a little dissection superior. The Bard low-profile port was tried in the pocket and seemed to fit well. Following this the catheter which had been placed on a tunneling device was tunneled from the port site on the anterior right chest up to the right neck where the small incision had been made slightly larger with an #11 blade knife. Then the catheter was pulled through so that we would have 15 centimeters to put into the central venous system once the dilation took place. Following this we placed the dilator and sheath over the guidewire in the jugular vein and carefully dilated the tract into the central venous system. The guidewire and dilator were then removed, carefully covering the end of the sheath to prevent air embolus. The end of the catheter which had been removed from the tunneling device and the tip checked was then inserted into the sheath and into the neck. I then carefully pulled the 2 arms of the tear-away sheath away as the clinical trials assistant held the catheter in position with a DeBakey forceps. Following this we checked the position of the catheter with C-arm fluoroscopy confirming that the tip seemed to be in the distal superior vena cava near the junction with the right atrium. I felt that it was in good position and so the rest of the catheter was pulled down toward the feet into the port site. We then measured to the appropriate position to cut the catheter to attach it to the port stem. Then the connector sealing device for the catheter port was placed onto the catheter and then the cath
[2021-08-10 14:35] VITALS: BP 113/50; PULSE 61; RESP 14; O2SAT 99
== END 2021-08-10 14:59 | disposition home or self-care (01) ==
PROVIDERS: PCP Internal Medicine; Visit Provider Surgery
PROC: (CPT 36561; principal; 2021-08-10 13:00)
DX: C61 Malignant neoplasm of prostate (principal); C79.51 Secondary malignant neoplasm of bone; I10 Essential (primary) hypertension; E78.2 Mixed hyperlipidemia; E11.9 Type 2 diabetes mellitus without complications; F41.8 Other specified anxiety disorders; Z79.84 Long term (current) use of oral hypoglycemic drugs; Z79.899 Other long term (current) drug therapy
CPT/HCPCS: 36561; 36415; 76937; 77001; 82948; 85610; 85730; C1788; J0690; J1644; J1885; J2704; J3010; J7030; J7120

== ENCOUNTER 2022-05-04 18:30 | Inpatient (IN) | payer OTHER, SELFPAY ==
--- NOTE | ~2022-05-04 | XR_ITS ---
XR chest 2V DATE: 05/04/2022 19:23 INDICATION: Overdose. History of hypertension, diabetes mellitus and prostate cancer with metastases. TECHNIQUE: AP and lateral views COMPARISON: 08/10/2021 portable AP chest FINDINGS: Right Port-A-Cath catheter is again noted, catheter tip near superior cavoatrial junction. Normal heart size. Aortic calcification and mild tortuosity. No hilar or mediastinal enlargement is e vident. No pulmonary infiltrate or consolidation, pleural effusion or pulmonary vascular congestion or pneumo thorax is evident. There is patency osteosclerosis of the skeleton consistent with history of prostate metastases. IMPRESSION: No active cardiac pulmonary disease Extensive osteosclerotic prostate metastases Right Port-A-Cath catheter again noted Reviewed, dictated and finalized at location A. AIN WAITER/WAITRESS
[2022-05-04 18:42] VITALS: BP 97/47; PULSE 66; RESP 14; TEMP 36.9; O2SAT 99
--- NOTE | 2022-05-04 18:47 | ECG_ITS ---
Measurements Intervals [place] Rate: 67 P: 58 ND: 149 QRS: 33 QRSD: 90 T: 42 QT: 401 QTc: 426 Interpretive Statements SINUS RHYTHM COMPARED TO ECG 10/05/2020 16:02:52 NO SIGNIFICANT CHANGES Electronically Signed On 05-05-2022 17:51:08 MECHANICAL ESTIMATOR by Honorio Chanel M.D.
--- NOTE | 2022-05-04 18:52 | ED.OVERDOSE ---
HPI - Overdose General Chief Complaint: Overdose Stated Complaint: suicide attempt Time Seen by Provider: 05/04/22 18:40 History of Present Illness HPI Narrative: 77-year-old male with history of prostate cancer with mets to the bone, type 2 diabetes, anxiety depression, hypertension presents to the emergency room following overdose on Xanax. Patient states today he took 30 tablets of 0.125 mg of Xanax, yesterday he took 20 tablets of 0.125 mg of Xanax with the attempt to kill himself. Patient states that he is got metastatic bone cancer and does not have a reason to live . Currently, patient is alert and oriented x3 with no other complaints at this time. Related Data Home Medications Medication Instructions Recorded Confirmed denosumab 120 mg/1.7 mL (70 mg/mL) 120 mg subcut MONTHLY 12/24/20 01/27/22 subcutaneous solution leuprolide 7.5 mg (1 month) 7.5 mg subcut MONTHLY 12/24/20 01/27/22 subcutaneous syringe (Eligard) enzalutamide 80 mg tablet (Xtandi) 160 mg PO DAILY 02/17/21 01/27/22 cholecalciferol (vitamin D3) 125 125 mcg PO DAILY 08/07/21 01/27/22 mcg (5,000 unit) capsule Allergies Allergy/AdvReac Type Severity Reaction Status Date / Time Sulfa (Sulfonamide Allergy Unknown Rash Verified 01/27/22 07:16 Antibiotics) Penicillins AdvReac Unknown Swelling Verified 01/27/22 07:16 Review of Systems Review of Systems: CONSTITUTIONAL: Denies fever, chills, or sweats. EYES: Denies visual changes, redness, or discharge. ENT: Denies rhinorrhea, congestion, sore throat, or otalgia. CARDIOVASCULAR: Denies chest pain, palpitations, or edema. RESPIRATORY: Denies cough or dyspnea. GASTROINTESTINAL: Denies abdominal pain, nausea, vomiting, or diarrhea. GENITOURINARY: Denies dysuria or hematuria. SKIN: Denies rash or itching. MUSCULOSKELETAL: Denies back pain, joint pain, or myalgia. NEUROLOGIC: Denies headache, numbness, dizziness, or weakness. PSYCHIATRIC: Reports anxiety or depression. [facility] Past Medical History Medical History Anxiety and depression (Unknown) Bone cancer Cyst of pancreas Essential (primary) hypertension (Unknown) Mixed hyperlipidemia (Unknown) Prostate cancer metastatic to bone (~06/2021) Type 2 diabetes mellitus without complication, with no history of insulin use (Unknown) Surgical History Surgical History History of total knee arthroplasty Bilateral Family History Family History Father Lung cancer Social History Social History Smoking status: Never smoker Second hand tobacco smoke exposure: No Alcohol intake: current Drinks per week: 2 Alcohol use details: one or 2 a week Substance use: never Substance use type: does not use Spiritual care concerns: No Exam Narrative: GENERAL: Well-appearing, well-nourished, no physical limitations, and in no acute distress. HEAD: Normocephalic, atraumatic. EYES: Conjunctivae normal, PERRLA and EOMI. CHEST: Clear to auscultation. No respiratory distress. No wheezes rales or rhonchi. HEART: Regular rate and rhythm. No murmur heard. Normal peripheral pulses. ABDOMEN: Soft, nontender, nondistended, normal active bowel sounds. EXTREMITIES: Normal range of motion. No edema. No clubbing or cyanosis SKIN: Warm, dry, no rash. No noted wounds NEURO: No focal deficits. Alert and oriented x3. MAEW. CN's II-XI intact bilaterally, normal gait PSYCH: Cooperative. Depressed affect, somnolent. Course Course Emergency Course: 2005: Spoke to hospitalist. Will admit patient to IMU with a sitter. Vital Signs Vital signs: Vital Signs Temperature 36.9 C 05/04/22 18:42 Pulse Rate 66 05/04/22 18:42 Respiratory Rate 14 05/04/22 18:42 Blood Pressure 97/47 L 05/04/22 18:42 Pulse Oximetry 99 05/04/22 1
[2022-05-04 18:55] VITALS: RESP 16
[2022-05-04 19:17] LABS: Basophils Percent Auto 0.6 % (0.2-1.2); Eosinophils Percent Auto 1.2 % (0-4.4); Hematocrit 30.5 % (42.0-52.0); Hemoglobin 9.9 g/dL (14.0-18.0); Immature Granulocyte Absolute 0.02 K/mm3 (0.00-0.031); Immature Granulocyte Percent A 0.6 % (0-0.5); Immature Platelet Fraction Pct 3.8 % (0.9-11.2); Lymphocytes Absolute Auto 0.63 K/mm3 (0.9-3.2); Lymphocytes Percent Auto 18.4 % (18.3-44.2); Mean Corpuscular HGB Conc 32.5 g/dl (32-36); Mean Corpuscular Hemoglobin 33.8 pg (26-34); Mean Corpuscular Volume 104.1 fl (80-100); Mean Platelet Volume 9.7 fl (7.4-10.4); Monocytes Absolute Auto 0.3 K/mm3 (0.1-0.6); Monocytes Percent Auto 7.9 % (2.6-8.5); Neutrophils Absolute Auto 2.4 K/mm3 (1.3-6.7); Neutrophils Percent Auto 71.3 % (45.5-73.1); Platelet Count Result 85 k/mm3 (150-375); Red Blood Count 2.93 M/mm3 (4.6-6.20); Red Cell Distribution Width 14.3 % (11.5-14.5); White Blood Count 3.4 K/mm3 (4.5-10.0)
[2022-05-04 19:24] LABS: Alanine Aminotransferase 20 U/L (6-50); Albumin Level 4.1 g/dL (3.5-5.1); Alkaline Phosphatase 232 U/L (38-126); Anion Gap 7 mmol/L (8-16); Aspartate Amino Transferase 29 U/L (17-59); Bilirubin,Total 0.4 mg/dL (0.2-1.3); Blood Urea Nitrogen 31 mg/dL (9-20); Calcium 8.4 mg/dL (8.4-10.2); Carbon Dioxide 27 mmol/L (22-30); Chloride 99 mmol/L (98-107); Estimated CRCL calculation 57 ml/min; Estimated Glomerular Filt Rate > 60; Glucose 156 mg/dL (65-110); Lipase 80 U/L (23-300); Potassium 4.1 mmol/L (3.4-5.0); Sodium 133 mmol/L (137-145)
[2022-05-04 19:25] LABS: Acetaminophen < 10 ug/mL (10-30); Ethanol < 10 mg/dL (<10); Salicylate < 1.0 mg/dL (2-20)
[2022-05-04 19:36] LABS: Troponin I < 0.012 ng/mL (0.000-0.034)
[2022-05-04 19:51] LABS: Influenza A QL RT-PCR Negative (Negative); Influenza B QL RT-PCR Negative (Negative); SARS-CoV-2 RNA PCR Negative
[2022-05-04 20:14] LABS: Add Urine Microscopic? YES; Appearance Urine Clear (Clear); Bilirubin Urine Negative (Negative); Blood Urine Negative (Negative); Color Urine Light Yellow (Yellow); Glucose Urine UA 3+ mg/dL (Negative); Ketones Urine Negative (Negative); Leukocyte Esterase Ur Negative LEU/UL (Negative); Nitrate Urine Negative (Negative); Protein Urine Negative (Negative); Urobilinogen Urine 0.2 mg/dL (<2.0)
[2022-05-04] MEDS: SODIUM CHLORIDE 0.9% IV 1,000 ML 999 ML IV CONT (20:17)
[2022-05-04 20:19] LABS: Alveolar/Arterial O2 Gradient 16.6 mmHg; Base Excess ABG 0.7 mEq/l (+/-2.0); Device ROOM AIR; Fractional Inspired Oxygen 21 %; HCO3 ABG 25.1 mEq/l (22.0-26.0); Modified Allen's Test Unable to perform; Oxygen Content ABG 14.1 %vol (16.0-22.0); Oxygen Saturation ABG 96.7 % (95.0-100.0); Oxyhemoglobin 95.1 % THb (90.0-100.0); PCO2 ABG 39.6 mmHg (35.0-45.0); PO2 ABG 85.7 mmHg (80.0-100.0); PO2 FiO2 Ratio Arterial Blood 4.08 %; Site Drawn RIGHT RADIAL; Total Hemoglobin 10.5 g/dL (12.0-18.0)
[2022-05-04 20:19] LABS: RBC Urine 0-2 /hpf (0-2)
[2022-05-04 20:20] VITALS: O2SAT 96
[2022-05-04 20:32] LABS: Amphetamine Screen Urine Negative (Negative); Barbiturate Screen Urine Negative (Negative); Benzodiazepines Screen Urine Positive (Negative); Cannabinoid Screen Urine Negative (Negative); Cocaine Screen Urine Negative (Negative); Methadone Screen Urine Negative (Negative); Opiate Screen Urine Negative (Negative); Phencyclidine Screen Urine Negative (Negative)
[2022-05-04 20:57] VITALS: BP 116/52; PULSE 65; RESP 18; O2SAT 94
[2022-05-04] MEDS: SODIUM CHLORIDE 0.9% IV 1,000 ML 125 ML IV CONT (21:36)
--- NOTE | 2022-05-04 21:36 | PM.IMHP ---
H&P: HPI History of Present Illness Date/Time: 05/04/22 21:36 Chief Complaint: Drug overdose Narrative: This is a 77-year-old gentleman with a past medical history including but not limited to prostate cancer metastatic to the bone, anxiety, depression, type 2 diabetes, anxiety depression, hypertension presents to the emergency room following overdose on Xanax.? Patient states today he took 30 tablets of 0.125 mg of Xanax, yesterday he took 20 tablets of 0.125 mg of Xanax with the attempt to kill himself.? Patient states that he is got metastatic bone cancer and does not have a reason to live .? Currently, patient is alert and oriented x3 with no other complaints at this time. His vital signs show temperature of 98.4?, pulse rate 65, respiratory rate 18, pulse ox 94% and a blood pressure of 97/47. After IV rehydration, his blood pressure improved to 116/52. Urine toxicology was positive for benzodiazepine only. There is no trace of alcohol in his system. He CBC shows a WBC of 3.4, hemoglobin 9.9, hematocrit 30.5 and a platelet count of 85. His chemistry shows a sodium of 133, potassium 4.1, chloride 99, bicarbonate 27, BUN 31 and a creatinine of 0.9. Blood glucose is 156. Serum calcium is 8.4. Total bilirubin is 0.4, AST is 29, ALT is 20, alkaline phosphatase is 2 3 2. Troponin is less than 0.012. Total protein is 6/albumin is 4.1. Chest x-ray performed on 05/04/2022. Findings: Right Port-A-Cath catheter is noted, catheter tip near superior cavoatrial junction. Normal heart size. Aortic calcification and mild tortuosity. No hilar or mediastinal enlargement is evident. No pulmonary infiltrate or consolidation, pleural effusion or pulmonary vascular congestion of note 0 ox is evident. There is patency osteosclerosis of the skeleton consistent with history of prostatic metastasis. Poison Control was contacted. Supportive management was recommended. Patient will be monitored on telemetry overnight. He will be monitored clinically with serial physical examination. Review of Systems Review of Systems: All systems reviewed & are unremarkable except as noted in HPI and below Constitutional: Constitutional: Reports as per HPI, Reports no additional constitutional complaints, Denies difficulty sleeping, Denies fatigue and Denies weakness Eyes: Eyes: Reports as per HPI and Denies blurry vision ENT: Reports system reviewed and no additional complaints, except as documented, Denies dysphagia, Denies epistaxis and Denies nasal congestion Cardiovascular: Cardiovascular: Reports as per HPI, Reports no additional cardiovascular complaints, Denies chest pain, Denies pedal edema and Denies palpitations Respiratory: Respiratory: Reports as per HPI, Denies cough, Denies dyspnea and Denies wheezing Gastrointestinal: Gastrointestinal: Reports as per HPI, Reports no additional gastrointestinal complaints, Denies diarrhea, Denies nausea, Denies vomiting and Denies hematemesis Genitourinary: Genitourinary: Reports no additional male genitourinary complaints and Reports as per HPI Musculoskeletal: Musculoskeletal: Reports no additional musculoskeletal complaints and Reports as per HPI Integumentary/Breasts: Skin/Breast: Reports system reviewed and no additional complaints, except as docu and Reports as per HPI Neurologic: Reports system reviewed and no additional complaints, except as documented and Reports as per HPI Psychiatric: Psychiatric: Reports as per HPI, Reports anxiety, Reports depression and Reports suicidal ideation [facility] Past Medical History Medical History Anxiety and depression (Unknown) Bone cancer Cyst of pancreas Essential (primary) hypertension (Unknown) Mixed hyperlipidemia (Unknown) Prostate cancer metastatic to bone (~06/2021) Type 2 diabetes mellitus without complication, with no history of insulin use (Unknown) Surgical History Surgical History (Reviewed 05/05/22 @ 03:10 by Sharonda
[2022-05-04 22:03] VITALS: BP 101/48; PULSE 68; RESP 14; O2SAT 95
[2022-05-04 22:32] VITALS: BMI 22.8
[2022-05-04 22:33] VITALS: BMI 22.8
--- NOTE | 2022-05-04 23:59 | PC.NURSE ---
This patient, Roney Mason, was admitted to Intensive Care Unit-2 27805/04/22. Patient/family oriented to hospital policies and general routines including ID bracelet, bed and alarms, visiting hours, pain management, procedures, bathroom and other care routines, personal items, smoking policy, room service/diet, and visiting hours. Information on how to activate the Rapid Response Team has been discussed. Patient/Family are encouraged to report perceived risks to care and to ask questions if they do not understand what they are told or what they should do.
[2022-05-05] VITALS (7 sets, daily range): BP systolic 102–117; BP diastolic 45–56; PULSE 62–71; RESP 14–17; TEMP 36.4–37; O2SAT 95–98; BMI 22.8
[2022-05-05] MEDS: SODIUM CHLORIDE 0.9% IV 1,000 ML 125 ML IV CONT (06:00)
[2022-05-05] MEDS: EMPAGLIFLOZIN 25 MG TABLET PO (09:08)
[2022-05-05] MEDS: ESCITALOPRAM OXALATE 10 MG TABLET PO (09:08)
[2022-05-05] MEDS: FAMOTIDINE 20 MG TABLET PO (09:08)
[2022-05-05] MEDS: CHOLECALCIFEROL 1,000 UNITS TABLET 5000 UNITS PO (09:08)
[2022-05-05] MEDS: metFORMIN HCL 500 MG TABLET 1000 MG PO (09:09)
[2022-05-05] MEDS: GLIMEPIRIDE 2 MG TABLET PO (09:09)
--- NOTE | 2022-05-05 10:09 | PC.NURSE ---
Poison control cleared 05/04 at 1849. Alert and oriented x 4. Eating meals and have IVF.
--- NOTE | 2022-05-05 10:22 | PM.IMPN ---
Progress Note: A&P Assessment and Plan (1) Benzodiazepine overdose: Code(s): T42.4X1A - Poisoning by benzodiazepines, accidental (unintentional), initial encounter Status: Acute Assessment and Plan: Acute benzodiazepine overdose secondary to suicide attempt Patient now alert awake oriented with stable vital signs. ABG in acceptable range Continue monitoring and supportive care, per poison control recommendation. Continue one-to-one observation. Patient carries a diagnosis of depression. At baseline is on antidepressant. Consult Psychiatry to update his medical regimen. (2) Anxiety and depression: Onset Date: Unknown Code(s): F41.9 - Anxiety disorder, unspecified; F32.9 - Major depressive disorder, single episode, unspecified Status: Acute Assessment and Plan: Consult psychiatry for evaluation Currently patient is on escitalopram which will be continued.. Follow-up with psychiatry for optimization of his medical regimen. (3) Prostate cancer metastatic to bone: Onset Date: ~06/2021 Code(s): C61 - Malignant neoplasm of prostate; C79.51 - Secondary malignant neoplasm of bone Status: Acute Assessment and Plan: Continue pain management p.r.n.. (4) Malignant neoplasm of prostate: Code(s): C61 - Malignant neoplasm of prostate Status: Acute Assessment and Plan: Continue pain management p.r.n.. (5) Essential (primary) hypertension: Onset Date: Unknown Code(s): I10 - Essential (primary) hypertension Status: Acute Assessment and Plan: Patient the patient blood pressure has been well controlled. Currently BP 113/56. Continue the home regimen. Add SSI (6) Type 2 diabetes mellitus without complication, with no history of insulin use: Onset Date: Unknown Code(s): E11.9 - Type 2 diabetes mellitus without complications Status: Acute Assessment and Plan: Diabetes mellitus: monitor Accu-Chek. Resume home medication . Plan SCDs Advance diet Code status will be full code. Subjective Date/time seen: 05/05/22 Overnight events reviewed. Patient is Afebrile on room air and has stable vital signs He denies any new complaints this morning. He is awake alert and oriented. He appears depressed states that he knows that he is going to from the cancer and does not want any stress on his family. This is the reason why he tried to commit suicide. All systems were reviewed and were negative except appetite and difficulty sleeping Review of Systems Review of Systems: All systems reviewed & are unremarkable except as noted in HPI and below (Subjective) Exam Narrative: GENERAL: The patient is alert and oriented, in no apparent distress. He is conversant in full sentences. HEENT: Pupils are equally round and reactive to light. Extraocular muscles are intact. Oral mucous membranes are moist without lesions. NECK: The patient has no noted JVD. No cervical palpable lymphadenopathy. CHEST/LUNGS: Lungs are clear bilaterally without rhonchi, rales, or wheezes. There is no subcutaneous air appreciated. There is no tenderness to the chest wall. HEART: The patient has a regular rate and rhythm. No murmurs, rubs, or gallops are appreciated. Distal pulses are 2+. No carotid bruits appreciated. ABDOMEN: The patient?s abdomen is soft, nontender, and nondistended. Bowel sounds are positive. No organomegaly is appreciated. No masses are appreciated. There are no peritoneal signs. There is no Matos?s sign. EXTREMITIES: The patient has no peripheral edema. There is no focal long bone tenderness or deformity. SKIN: The patient?s skin is warm and dry, without rashes or lesions. PSYCHIATRIC: The patient has normal mental status and has an appropriate affect. NEUROLOGIC: The patient has 5/5 strength to the upper and lower extremities bilaterally. Sensation is intact throughout. Gait is within normal limits. Deep tendon reflexes
[2022-05-05 12:03] LABS: Glucose Point of Care 161 mg/dl (65-105)
--- NOTE | 2022-05-05 14:23 | PM.DS ---
DS: Admitting Diagnosis Discharge Date 05/05/2022 Admitting Diagnosis Drug overdose DS: Discharge Diagnosis Discharge Diagnosis (1) Benzodiazepine overdose: Code(s): T42.4X1A - Poisoning by benzodiazepines, accidental (unintentional), initial encounter Status: Acute Assessment and Plan: Acute benzodiazepine overdose secondary to suicide attempt Patient now alert awake oriented with stable vital signs. ABG in acceptable range Continue monitoring and supportive care, per poison control recommendation. Continue one-to-one observation. Patient carries a diagnosis of depression. At baseline is on antidepressant. Consult Psychiatry to update his medical regimen. (2) Anxiety and depression: Onset Date: Unknown Code(s): F41.9 - Anxiety disorder, unspecified; F32.9 - Major depressive disorder, single episode, unspecified Status: Acute Assessment and Plan: Consult psychiatry for evaluation Currently patient is on escitalopram which will be continued.. Follow-up with psychiatry for optimization of his medical regimen. (3) Prostate cancer metastatic to bone: Onset Date: ~06/2021 Code(s): C61 - Malignant neoplasm of prostate; C79.51 - Secondary malignant neoplasm of bone Status: Acute Assessment and Plan: Continue pain management p.r.n.. (4) Malignant neoplasm of prostate: Code(s): C61 - Malignant neoplasm of prostate Status: Acute Assessment and Plan: Continue pain management p.r.n.. (5) Essential (primary) hypertension: Onset Date: Unknown Code(s): I10 - Essential (primary) hypertension Status: Acute Assessment and Plan: Patient the patient blood pressure has been well controlled. Currently BP 113/56. Continue the home regimen. Add SSI (6) Type 2 diabetes mellitus without complication, with no history of insulin use: Onset Date: Unknown Code(s): E11.9 - Type 2 diabetes mellitus without complications Status: Acute Assessment and Plan: Diabetes mellitus: monitor Accu-Chek. Resume home medication . Plan SCDs Advance diet Code status will be full code. DS: Summary Hospital Course Reason for hospitalization: Drug overdose Narrative: This is a 77-year-old gentleman with a past medical history including but not limited to prostate cancer metastatic to the bone, anxiety, depression, type 2 diabetes, anxiety depression, hypertension presents to the emergency room following overdose on Xanax.? Patient states today he took 30 tablets of 0.125 mg of Xanax, yesterday he took 20 tablets of 0.125 mg of Xanax with the attempt to kill himself.? Patient states that he is got metastatic bone cancer and does not have a reason to live .? Currently, patient is alert and oriented x3 with no other complaints at this time. His vital signs show temperature of 98.4?, pulse rate 65, respiratory rate 18, pulse ox 94% and a blood pressure of 97/47.? After IV rehydration, his blood pressure improved to 116/52. Urine toxicology was positive for benzodiazepine only.? There is no trace of alcohol in his system. He CBC shows a WBC of 3.4, hemoglobin 9.9, hematocrit 30.5 and a platelet count of 85.? His chemistry shows a sodium of 133, potassium 4.1, chloride 99, bicarbonate 27, BUN 31 and a creatinine of 0.9.? Blood glucose is 156.? Serum calcium is 8.4.? Total bilirubin is 0.4, AST is 29, ALT is 20, alkaline phosphatase is 2 3 2.? Troponin is less than 0.012.? Total protein is 6/albumin is 4.1. Chest x-ray performed on 05/04/2022.? Findings:? Right Port-A-Cath catheter is noted, catheter tip near superior cavoatrial junction.? Normal heart size.? Aortic calcification and mild tortuosity.? No hilar or mediastinal enlargement is evident.? No pulmonary infiltrate or consolidation, pleural effusion or pulmonary vascular congestion of note 0 ox is evident.? There is patency osteosclerosis of the skeleton consistent with history of prostat
== END 2022-05-05 15:30 | disposition home or self-care (01) | DRG 918 ==
LOC: ANHED 20:06 → ANHICU 21:51
PROVIDERS: Admitting Provider Internal Medicine; Emergency Provider Nurse Practitioner Family; PCP Internal Medicine; Visit Provider Family Medicine
DX: T42.4X2A Poisoning by benzodiazepines, intentional self-harm, initial encounter (principal); C79.51 Secondary malignant neoplasm of bone; C61 Malignant neoplasm of prostate; E11.9 Type 2 diabetes mellitus without complications; F41.8 Other specified anxiety disorders; I10 Essential (primary) hypertension; E78.2 Mixed hyperlipidemia; Z96.653 Presence of artificial knee joint, bilateral; Z20.822 Contact with and (suspected) exposure to COVID-19
CPT/HCPCS: 36415; 36600; 71046; 80053; 80307; 81001; 82805; 82948; 83690; 84484; 85025; 85055; 87636; 93005; 99285; A9270; J7030

== ENCOUNTER 2022-05-14 17:57 | Emergency (ER) | payer OTHER, SELFPAY ==
[2022-05-14] VITALS (28 sets, daily range): BP systolic 108–128; BP diastolic 48–79; PULSE 69–90; RESP 12–23; TEMP 36.6–36.8; O2SAT 93–100
--- NOTE | ~2022-05-14 | XR_ITS ---
EXAMINATION: XR chest 1V portable DATE: 05/14/2022 18:33 INDICATION: Suicide attempt. TECHNIQUE: A single frontal view of the chest was obtained. COMPARISON: Chest 2 views 05/04/2022, bone scan 07/27/2021 FINDINGS: There is mild scarring at left lung apex. No pleural effusion or pneumothorax. The heart si ze is normal. There is a right internal jugular port with tip in superior vena cava. There are scatte red sclerotic lesions of bone, consistent with metastatic disease. IMPRESSION: 1. Widespread osseous metastatic disease. Reviewed, dictated and finalized at location A. [facility]
--- NOTE | 2022-05-14 18:01 | ECG_ITS ---
Measurements Intervals [place] Rate: 91 P: 52 [place]: 134 QRS: 31 QRSD: 96 T: 38 QT: 364 QTc: 449 Interpretive Statements SINUS RHYTHM WITHIN NORMAL LIMITS COMPARED TO ECG 05/04/2022 18:51:45 NO SIGNIFICANT CHANGES Electronically Signed On 05-15-2022 9:42:57 HAIR CUTTER by Sabino Hill M.D.
[2022-05-14 18:25] LABS: Alveolar/Arterial O2 Gradient 574.7 mmHg; Base Excess ABG -2.2 mEq/l (+/-2.0); Fractional Inspired Oxygen 100 %; HCO3 ABG 21.8 mEq/l (22.0-26.0); Methemoglobin ABG 0.3 %THb (0-1.5); Oxygen Content ABG 11.7 %vol (16.0-22.0); Oxygen Saturation ABG 97.9 % (95.0-100.0); PCO2 ABG 34.6 mmHg (35.0-45.0); PO2 ABG 103.7 mmHg (80.0-100.0); PO2 FiO2 Ratio Arterial Blood 1.04 %; Reduced Hemoglobin 2.3 %THb (0-5.0); Total Hemoglobin 11.8 g/dL (12.0-18.0); pH ABG 7.417 (7.350-7.450)
[2022-05-14] MEDS: ONDANSETRON INJ 4 MG/2 ML VIAL IV PUSH (18:26)
[2022-05-14 18:27] LABS: Oxyhemoglobin 69.1 % THb (90.0-100.0)
[2022-05-14 18:28] LABS: Carboxyhemoglobin 28.3 % THb (0-2.0); Device NON-REBREATHER MASK; Site Drawn LEFT BRACHIAL
[2022-05-14 18:41] LABS: Basophils Percent Auto 0.5 % (0.2-1.2); Eosinophils Percent Auto 0.8 % (0-4.4); Hematocrit 33.1 % (42.0-52.0); Immature Granulocyte Absolute 0.07 K/mm3 (0.00-0.031); Immature Granulocyte Percent A 1.9 % (0-0.5); Lymphocytes Absolute Auto 0.75 K/mm3 (0.9-3.2); Lymphocytes Percent Auto 19.9 % (18.3-44.2); Mean Corpuscular HGB Conc 33.2 g/dl (32-36); Mean Corpuscular Hemoglobin 34.1 pg (26-34); Mean Corpuscular Volume 102.5 fl (80-100); Mean Platelet Volume 9.1 fl (7.4-10.4); Monocytes Absolute Auto 0.4 K/mm3 (0.1-0.6); Monocytes Percent Auto 9.6 % (2.6-8.5); Neutrophils Absolute Auto 2.5 K/mm3 (1.3-6.7); Neutrophils Percent Auto 67.3 % (45.5-73.1); Platelet Count Result 114 k/mm3 (150-375); Red Blood Count 3.23 M/mm3 (4.6-6.20); Red Cell Distribution Width 14.2 % (11.5-14.5); White Blood Count 3.8 K/mm3 (4.5-10.0)
[2022-05-14 18:54] LABS: Ethanol < 10 mg/dL (<10)
[2022-05-14 18:55] LABS: Lactic Acid Reflex 3.1 mmol/L (0.7-2.0)
[2022-05-14 18:57] LABS: Alanine Aminotransferase 21 U/L (6-50); Albumin Level 4.7 g/dL (3.5-5.1); Alkaline Phosphatase 301 U/L (38-126); Anion Gap 13 mmol/L (8-16); Aspartate Amino Transferase 32 U/L (17-59); Bilirubin,Total 0.8 mg/dL (0.2-1.3); Blood Urea Nitrogen 17 mg/dL (9-20); Calcium 8.9 mg/dL (8.4-10.2); Carbon Dioxide 22 mmol/L (22-30); Chloride 99 mmol/L (98-107); Estimated CRCL calculation 57 ml/min; Estimated Glomerular Filt Rate > 60; Glucose 208 mg/dL (65-110); Potassium 3.7 mmol/L (3.4-5.0); Sodium 134 mmol/L (137-145)
[2022-05-14 19:03] LABS: Partial Thromboplastin Time 26.3 SECONDS (22.3-36.8)
--- NOTE | 2022-05-14 19:21 | ED.PSYCH ---
HPI - Psych General Chief Complaint: Psychiatric Symptoms <Ellis Zhang MD - Last Filed: 05/18/22 18:39> Stated Complaint: SI <Ellis Zhang MD - Last Filed: 05/18/22 18:39> Time Seen by Provider: 05/14/22 18:00 <Ellis Zhang MD - Last Filed: 05/18/22 18:39> History of Present Illness HPI Narrative: Patient is a 77-year-old male who presents ER with suicide attempt by carbon monoxide poisoning. He attached a hose to the exhaust of his 0 turn lawnmower and put it on the inside of his car and was sitting in there. Unknown how long he was in the car but he had not been seen since 2 PM. He has been found and EMS was called. Initially he was groggy and not responding but then woke up. Here he is oriented x3. Bedside carboxyhemoglobin level is 35. Patient has some nausea. Otherwise he has no complaints. Patient recently had suicide attempt with Xanax and was hospitalized for medical clearance. He was then remorseful about trying to take his own life and allowed to go home. 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 Apparently with each subsequent bone scan his metastases continue to spread and he becomes more downtrodden due to this. <Ellis Zhang MD - Last Filed: 05/18/22 18:39> Related Data Home Medications: Home Medications Medication Instructions Recorded Confirmed denosumab 120 mg/1.7 mL (70 mg/mL) 120 mg subcut MONTHLY 12/24/20 05/05/22 subcutaneous solution leuprolide 7.5 mg (1 month) 7.5 mg subcut MONTHLY 12/24/20 05/05/22 subcutaneous syringe (Eligard) enzalutamide 80 mg tablet (Xtandi) 160 mg PO DAILY 02/17/21 05/05/22 cholecalciferol (vitamin D3) 125 125 mcg PO DAILY 08/07/21 05/05/22 mcg (5,000 unit) capsule <Ellis Zhang MD - Last Filed: 05/18/22 18:39> Allergies/Adverse Reactions: Allergies Allergy/AdvReac Type Severity Reaction Status Date / Time Sulfa (Sulfonamide Allergy Unknown Rash Verified 05/14/22 18:40 Antibiotics) Penicillins AdvReac Unknown Swelling Verified 05/14/22 18:40 <Ellis Zhang MD - Last Filed: 05/18/22 18:39> Review of Systems Review of Systems: All systems reviewed & are unremarkable except as noted in HPI and below <Ellis Zhang MD - Last Filed: 05/18/22 18:39> Constitutional: Constitutional: Denies chills, Denies fatigue and Denies fever(s) <Ellis Zhang MD - Last Filed: 05/18/22 18:39> Eyes: Eyes: Denies change in vision and Denies photophobia <Ellis Zhang MD - Last Filed: 05/18/22 18:39> ENT: Denies nasal congestion and Denies sore throat <Ellis Zhang MD - Last Filed: 05/18/22 18:39> Cardiovascular: Cardiovascular: Denies chest pain, Denies rapid heart rate and Denies radiating jaw, neck or arm pain <Ellis Zhang MD - Last Filed: 05/18/22 18:39> Respiratory: Respiratory: Denies cough and Denies dyspnea <Ellis Zhang MD - Last Filed: 05/18/22 18:39> Gastrointestinal: Gastrointestinal: Denies abdominal pain, Reports nausea and Reports vomiting <Ellis Zhang MD - Last Filed: 05/18/22 18:39> Neurologic: Denies syncope, Denies headache(s), Denies focal weakness and Denies numbness <Ellis Zhang MD - Last Filed: 05/18/22 18:39> Psychiatric: Psychiatric: Reports depression and Reports suicidal ideation <Ellis Zhang MD - Last Filed: 05/18/22 18:39> PMFSH Past Medical History Medical History: Medical History Anxiety and depression (Unknown) Bone cancer Cyst of pancreas Essential (primary) hypertension (Unknown) Mixed hyperlipidemia (Unknown) Prostate cancer metastatic to bone (~06/2021) Type 2 diabetes mellitus without complication, with no history of insulin use (Unknown) <Ellis Zhang MD - Last Filed: 05/18/22 18:39> Surgical History Surgical History: Surgical History History of tota
[2022-05-14 19:27] LABS: INR 1.2; Prothrombin Time 14.3 Seconds (11.1-14.7)
[2022-05-14] MEDS: SODIUM CHLORIDE 0.9% IV 1,000 ML 999 ML IV CONT (19:57)
[2022-05-14 20:27] LABS: Add Urine Microscopic? YES; Appearance Urine Clear (Clear); Bilirubin Urine Negative (Negative); Blood Urine Negative (Negative); Color Urine Yellow (Yellow); Glucose Urine UA 3+ mg/dL (Negative); Ketones Urine 1+ mg/dL (Negative); Leukocyte Esterase Ur Negative LEU/UL (Negative); Nitrate Urine Negative (Negative); Protein Urine Negative (Negative); Urobilinogen Urine 0.2 mg/dL (<2.0)
[2022-05-14 20:38] LABS: Amphetamine Screen Urine Negative (Negative); Barbiturate Screen Urine Negative (Negative); Benzodiazepines Screen Urine Negative (Negative); Cannabinoid Screen Urine Negative (Negative); Cocaine Screen Urine Negative (Negative); Methadone Screen Urine Negative (Negative); Opiate Screen Urine Negative (Negative); Phencyclidine Screen Urine Negative (Negative)
[2022-05-14 20:39] LABS: RBC Urine 0-2 /hpf (0-2); WBC Urine 0-3 /hpf
[2022-05-14 21:26] LABS: Alveolar/Arterial O2 Gradient 640.7 mmHg; Carboxyhemoglobin 3.6 % THb (0-2.0); Fractional Inspired Oxygen 100 %; HCO3 ABG 26.9 mEq/l (22.0-26.0); Methemoglobin ABG 0.1 %THb (0-1.5); Oxygen Content ABG 5.8 %vol (16.0-22.0); PCO2 ABG 48.3 mmHg (35.0-45.0); Reduced Hemoglobin 57.9 %THb (0-5.0); Total Hemoglobin 10.7 g/dL (12.0-18.0); pH ABG 7.363 (7.350-7.450)
[2022-05-14 21:29] LABS: SARS-CoV-2 RNA PCR Negative
[2022-05-14 21:33] LABS: Oxygen Saturation ABG 40.1 % (95.0-100.0); PO2 ABG < 27.0 mmHg (80.0-100.0)
[2022-05-14 21:35] LABS: Oxyhemoglobin 38.4 % THb (90.0-100.0)
[2022-05-14 21:36] LABS: Device NON-REBREATHER MASK; Modified Allen's Test Pass; Site Drawn LEFT RADIAL
[2022-05-14 21:39] LABS: Reflex Lactic Acid Yes or No Add Lactic
[2022-05-14 21:40] LABS: Lactic Acid Reflex 1.4 mmol/L (0.7-2.0)
--- NOTE | 2022-05-14 22:08 | PC.NURSE ---
Patient is now medically cleared. Spouse states that patient spoke with her about possibility of going hospice due to Metastatic bone cancer.
--- NOTE | 2022-05-14 22:18 | PC.NURSE ---
All items removed from patients room except general office associate.
--- NOTE | 2022-05-14 22:20 | PC.NURSE ---
Jean Paul notified for need for mental health evaluation
--- NOTE | 2022-05-14 23:57 | PC.NURSE ---
Mental health in speaking with patient and his spouse at this time.
[2022-05-15] MEDS: ALPRAZolam (*CRX) 0.5 MG TABLET 0.25 MG PO (01:42)
--- NOTE | 2022-05-15 01:56 | PC.NURSE ---
[facility] stated to call back tomorrow for patient placement. No beds available at this time.
[2022-05-15 04:21] VITALS: BP 126/79; PULSE 72; RESP 18; TEMP 36.8; O2SAT 98
--- NOTE | 2022-05-15 07:35 | PC.NURSE ---
pt resting in darkened room. no distress noted. continue waiting bed availibility
--- NOTE | 2022-05-15 08:49 | PC.NURSE ---
[facility] refused admission due to insurance out of network
[2022-05-15 10:15] VITALS: BP 112/59; PULSE 72; RESP 16; O2SAT 98
--- NOTE | 2022-05-15 10:15 | PC.NURSE ---
pt c/o anxiety. requesting another dose of 0.5 mg xanax. pt given morning medications per dr valenzuela verbal order.
[2022-05-15] MEDS: ALPRAZolam (*CRX) 0.5 MG TABLET PO (10:18)
--- NOTE | 2022-05-15 11:21 | PC.NURSE ---
Assumed pt care from Catalina Geller RN
--- NOTE | 2022-05-15 12:00 | PC.NURSE ---
[facility] states did not receive any information from intake. requested chart to be faxed to [phone]
--- NOTE | 2022-05-15 13:46 | PC.NURSE ---
Contacted care coordination to speak with pt.
--- NOTE | 2022-05-15 14:06 | PC.NURSE ---
1400 Care coordination updated on pt status. At bedside speaking with pt and spouse.
--- NOTE | 2022-05-15 15:18 | PCCCNOTE ---
Met with pt and his , Lizzie to discuss hospice care per their request. Pt is here with third attempt at self harm /suicide attempt via affixation with carbon monoxide and has been evaluated by Crisis with recommendation of psychiatric placement. Referrals have been made to multiple psychiatric facilities, pending acceptance and bed availability. Pt confirms he did try to harm himself and has a terminal diagnosis of cancer and is seeking a second opinion at [facility] on May 31.Both state they plan to contact [facility] once pt leave his psychiatric placement.
[2022-05-15] MEDS: LORazepam INJ (*CRX) 2 MG/ML VIAL 0.5 MG IM (17:22)
--- NOTE | 2022-05-15 21:17 | PC.NURSE ---
CHUCK PLACED OUTSIDE DOOR NOW THAT FAMILY HAS LEFT FACILITY
--- NOTE | 2022-05-16 00:52 | PC.NURSE ---
timothy from home given per dr jeffery
[2022-05-16] MEDS: ATORVASTATIN 40 MG TABLET PO ×2 (00:56→21:30)
--- NOTE | 2022-05-16 07:30 | PC.NURSE ---
EDP ok with pt having a book to read and remote for TV
--- NOTE | 2022-05-16 07:30 | PC.NURSE ---
Pt denies any SI at this time. States I just thought it would be easier on my family to just get it over with Pt no risk on columbia scale, however, Per Dr. Verdin he still wants a sitter on patient at this time
[2022-05-16 07:43] VITALS: BP 122/85; PULSE 78; RESP 18; O2SAT 97
--- NOTE | 2022-05-16 07:45 | PC.NURSE ---
Pt laying in bed, calm. Pt denies SI at this time.
[2022-05-16] MEDS: metFORMIN HCL 500 MG TABLET 1000 MG PO ×2 (09:23→18:03)
[2022-05-16] MEDS: ESCITALOPRAM OXALATE 10 MG TABLET PO (09:23)
[2022-05-16] MEDS: EMPAGLIFLOZIN 25 MG TABLET PO (09:23)
[2022-05-16] MEDS: GLIMEPIRIDE 2 MG TABLET PO (09:23)
[2022-05-16] MEDS: PHARMACIST COMMUNICATION ORDER 1 EACH XX (09:26)
[2022-05-16 09:29] LABS: Glucose Point of Care 292 mg/dl (65-105)
[2022-05-16] MEDS: LOSARTAN POTASSIUM 50 MG TABLET PO (09:31)
[2022-05-16] MEDS: LORazepam (*CRX) 0.5 MG TABLET PO ×2 (09:35→14:48)
[2022-05-16 14:49] VITALS: BP 116/53; PULSE 83; RESP 18; O2SAT 97
--- NOTE | 2022-05-16 16:32 | PC.NURSE ---
reg diet food tray ordered
[2022-05-16 17:05] LABS: Glucose Point of Care 164 mg/dl (65-105)
--- NOTE | 2022-05-16 17:05 | PC.NURSE ---
[facility] called and asked if pt was still in need of placement. They state that they do not have any beds at this time
[2022-05-16 18:11] VITALS: BP 130/53; PULSE 83; RESP 18; O2SAT 96
[2022-05-16] MEDS: ZOLPIDEM TARTRATE (*CRX) 5 MG TABLET PO (21:30)
[2022-05-16 21:37] VITALS: BP 127/83; PULSE 72; RESP 18; O2SAT 97
--- NOTE | 2022-05-17 05:02 | PC.NURSE ---
Cristine from [facility] call to follow up that Roney was still in the [place] ER and waiting for a [facility] health bed. They will keep him on their waitlist
[2022-05-17 08:15] VITALS: BP 125/63; PULSE 76; RESP 18; O2SAT 94
[2022-05-17] MEDS: LOSARTAN POTASSIUM 50 MG TABLET PO (09:58)
[2022-05-17] MEDS: GLIMEPIRIDE 2 MG TABLET PO (10:51)
[2022-05-17] MEDS: EMPAGLIFLOZIN 25 MG TABLET PO (10:51)
[2022-05-17] MEDS: metFORMIN HCL 500 MG TABLET 1000 MG PO ×2 (10:51→18:11)
[2022-05-17] MEDS: ESCITALOPRAM OXALATE 10 MG TABLET PO (10:52)
--- NOTE | 2022-05-17 10:59 | PC.NURSE ---
Spoke with Sulma from Crisis and requested pt be reevaluated. Sulma stated she would speak to her city plant supervisor regarding re-eval of pt. Crisis stated they would most likely not safety plan pt due to previous attempts of SI. Sulma calls back and stated they recommend pt be hospitalized due to previous attempts.
--- NOTE | 2022-05-17 12:12 | PC.NURSE ---
[facility] is not in network with pts insurance.
--- NOTE | 2022-05-17 12:19 | PC.NURSE ---
precautionary lunch tray ordered
[2022-05-17] MEDS: LORazepam (*CRX) 0.5 MG TABLET PO ×2 (12:32→16:33)
--- NOTE | 2022-05-17 15:32 | PC.NURSE ---
Spoke with Mecca from intake at [facility] and pt is not being accepted. They are unable to meet pt needs medically.
--- NOTE | 2022-05-17 16:59 | PC.NURSE ---
regular precautionary dinner tray ordered
--- NOTE | 2022-05-17 18:01 | PCCCNOTE ---
Asked by Dr. Gibson to assist with psych placement for patient. Reviewed records and called crisis asking about voluntary form. Per Cecilia it should be on the chart. ED clipboard reviewed multiple times with Henri and Jocelyn and could not find it. Met with patient in ER Room 9 with his bedside RN Henri, patient confirms voluntary placement for psychiatry and signs voluntary form. Witnessed by bedside RN Henri and this health care social worker. Called to [facility], they do not have any beds and advised to call [facility] for in [place]. Called to [facility] and spoke with Tanesha, they only accept voluntary admissions and states that we can send a referral [phone] phone number [phone]. Spoke reese/ Cecilia in Crisis and she advises to fax to [facility] [phone] and [facility] [phone]. Faxed to all three faciliites Return call received from Tanesha at [facility] for , no beds tonight but possible for dc but will need some updated notes to fax'd in the morning. Care coordination to fax in AM.
[2022-05-17] MEDS: ATORVASTATIN 40 MG TABLET PO (21:04)
[2022-05-17] MEDS: ZOLPIDEM TARTRATE (*CRX) 5 MG TABLET PO (21:11)
[2022-05-17 21:20] LABS: Glucose Point of Care 164 mg/dl (65-105)
[2022-05-18 02:09] VITALS: BP 114/57; PULSE 72; RESP 18; TEMP 37.1; O2SAT 98
--- NOTE | 2022-05-18 06:29 | PC.NURSE ---
Per EDP, sitter to remain on patient d/t patient having multiple attempts to kill self in past week and potential to elope.
--- NOTE | 2022-05-18 07:30 | PC.NURSE ---
Took over care from Iris. Pt sleeping at this time.
--- NOTE | 2022-05-18 08:00 | PC.NURSE ---
Hospital bed provided for patient, breakfast ordered
[2022-05-18 08:04] VITALS: BP 131/57; PULSE 81; TEMP 36.9; O2SAT 100
[2022-05-18] MEDS: EMPAGLIFLOZIN 25 MG TABLET PO (08:48)
[2022-05-18] MEDS: ESCITALOPRAM OXALATE 10 MG TABLET PO (08:48)
[2022-05-18] MEDS: GLIMEPIRIDE 2 MG TABLET PO (08:48)
[2022-05-18] MEDS: metFORMIN HCL 500 MG TABLET 1000 MG PO ×2 (08:48→17:35)
[2022-05-18] MEDS: LOSARTAN POTASSIUM 50 MG TABLET PO (08:48)
--- NOTE | 2022-05-18 08:58 | PCCCNOTE ---
Fax'd [facility] to [facility], awaiting follow up.
[2022-05-18 09:06] LABS: Glucose Point of Care 185 mg/dl (65-105)
[2022-05-18] MEDS: LORazepam (*CRX) 0.5 MG TABLET PO ×2 (09:09→16:44)
--- NOTE | 2022-05-18 10:13 | PC.NURSE ---
care coordination and crisis discussing pt case and deciding plan of care moving foward
--- NOTE | 2022-05-18 10:44 | PC.NURSE ---
Crisis called and would like us to fax chart to [facility] in [place]. Kalyani from care coordination faxing chart
--- NOTE | 2022-05-18 10:58 | PCCCNOTE ---
Met with Cecilia from crisis to assist with finding psych placement. Called [facility] and they do not have a bed today but advised to call back tomorrow after 10am. Called to [facility] spoke with Marisabel, they will look at referral but need us to use their referral form. Marisabel to fax. Called Marisabel back as did not receive referral form, provided marisabel with care coordination fax as she states that ER fax is busy. Called to [facility] they do not have any beds but patient is still on the waitlist. Called to [facility], they are -willing to look at referral, fax'd as requested to [phone]. Called to [facility] spoke with Zion direct care staffer for for in-network facilities, he provides [facility], [facility], [facility], [facility], which we have tried. Cate at [phone] which when called is only for eating disorders. Additional hospital provided [facility] in [place], [place] [phone]. Called [facility] they do have inpatient psych voluntary and involuntary ages 18-65. Per Zion if bed found but out of network and preauth needed, can have facility contact [facility] at [phone]. Bedside RN Hafsa received a call that [facility] will look at his referral. Fax'd to [phone].
--- NOTE | 2022-05-18 12:14 | PC.NURSE ---
Food tray ordered at 1210
[2022-05-18 13:40] VITALS: BP 119/49; PULSE 80; RESP 18; O2SAT 99
[2022-05-18 13:43] LABS: Glucose Point of Care 192 mg/dl (65-105)
--- NOTE | 2022-05-18 14:08 | PCCCNOTE ---
Fax'd referral with specific referral form to [facility]. Return call received from [facility]'s spoke w/ Jen - declining patient as they can not meet the patient's needs. Asked what that means and Jen said that is all the MD said, advised that if she could get more specifics it would really help us to have a better understanding of how to find our patient placement. Spoke with Ashish at [facility], and provided update. He is getting ready to go out on a call. This rn primary care to call some places and will touch base with Ashish later. Called to [facility] they advised to call back after 7pm. Called to [facility] s/w Dominga, they are a free standing psych inpatient. They take adults and willing to look at referral for patient but they do not have a specific brittany psych facility. Advised that he does not have dementia or any behaviors, explained SI attempts and per Dominga okay to send referral [phone].
--- NOTE | 2022-05-18 14:20 | PCCCNOTE ---
Phone call to [facility] to follow up on referral, Psychiatry physician is having a medical provider review to make sure can meet needs. Explained that if they have any medical questions to please to contact us and if provider needs to talk he can, as he is not requiring pain medicine, no behaviors, independent with adls. [facility] intake rep to pass along.
--- NOTE | 2022-05-18 15:19 | PCCCNOTE ---
Addendum entered by Brynn Sanderson RN 05/18/22 16:51: Accepted by [facility], Dr. Cui. Patient will be on [address], and Nurse Report to [phone]. Per Aby, notify [place] once transportation has been arranged with [facility]. ER [place] Alyssa, to begin work on finding ambulance. Original Note: Spoke with Cecilia at [facility] and updated regarding referral status. Called to [facility] and requested that they re-review the referral, and that Dr. Zhang is willing to do a doc to doc. Maria Alejandra at [facility] says that Dr. Mari is going into a meeting but they are willing to look at it again. VM received from Aby at [facility], they will need to know how to he will get here and they need to speak with him. Called [facility] back and provided ER mobile for patient to speak with the facility.
[2022-05-18 17:36] VITALS: BP 119/51; PULSE 78; RESP 18; O2SAT 98
--- NOTE | 2022-05-18 17:56 | PCCCNOTE ---
Judy picked patient up for transfer to [facility], Called to Aby at Intake and notified that patient is on the way. Aby to notify the floor.
== END 2022-05-18 18:04 ==
PROVIDERS: Emergency Medicine; Emergency Provider General Practice; PCP Internal Medicine
DX: T58.02XA Toxic effect of carbon monoxide from motor vehicle exhaust, intentional self-harm, initial encounter (principal); Z20.822 Contact with and (suspected) exposure to COVID-19; C61 Malignant neoplasm of prostate; C79.51 Secondary malignant neoplasm of bone; I10 Essential (primary) hypertension; E78.2 Mixed hyperlipidemia; E11.9 Type 2 diabetes mellitus without complications; F41.9 Anxiety disorder, unspecified; F32.A Depression, unspecified; Z96.653 Presence of artificial knee joint, bilateral; Z79.84 Long term (current) use of oral hypoglycemic drugs; Z79.899 Other long term (current) drug therapy
CPT/HCPCS: 36415; 36600; 71045; 80053; 80307; 81001; 82375; 82805; 82948; 83050; 83605; 84443; 85025; 85610; 85730; 93005; 96361; 96372; 96374; 99285; A9270; J2060; J2405; J7030; U0003; U0005